=== PATIENT | male | born 1960 | race Caucasian/White ===

== ENCOUNTER 2018-10-30 10:52 | Emergency (ER) | payer BC ==
[2018-10-30 11:06] VITALS: BP 178/86
--- NOTE | 2018-10-30 11:22 | UC ---
Skin Complaint HPI - HPI Summary HPI Summary: 58 -year-old male, insulin-dependent diabetic with an abscess to his right neck as well as 2 areas on his left upper leg which he stated they all started as pimples last and have progressively worsened. He believes he may have had a fever over the past day or 2. - History of Current Complaint Chief Complaint: UCGeneralIllness Time Seen by Provider: 10/30/18 11:21 Stated Complaint: PERSONAL Hx Obtained From: Patient Onset/Duration: Gradual Onset Skin Exposure Onset/Duration: Days Ago Timing: Constant Onset Severity: Mild Current Severity: Moderate Pain Intensity: 0 Location: Other - Right neck more posterior. Character: Swelling, Redness, Raised, Painful Aggravating Factor(s): Touch Alleviating Factor(s): Nothing Associated Signs & Symptoms: Positive: Fever, Chills, Drainage - Patient has had a small amount of yellow drainage from the neck abscess. Related History: Diabetes, Other: - Patient states the area started as small pimples. - Allergy/Home Medications Allergies/Adverse Reactions: Allergies Allergy/AdvReac Type Severity Reaction Status Date / Time Sulfa (Sulfonamide Allergy Intermediate Unknown Verified 10/30/18 11:06 Antibiotics) Reaction Details Home Medications: Home Medications Insulin Glargine,Hum.rec.anlog [Lantus] 100 unit SQ DAILY 10/30/18 [History Confirmed 10/30/18] Losartan Potassium [Cozaar] 50 mg PO DAILY WITH MEAL 10/30/18 [History Confirmed 10/30/18] PMH/Surg Hx/FS Hx/Imm Hx Previously Healthy: Yes Endocrine History: Diabetes Cardiovascular History: Hypertension - Surgical History Surgical History: Yes Surgery Procedure, Year, and Place: vasectomy. tonsils - Family History Known Family History: Positive: Non-Contributory - Social History Alcohol Use: Occasionally Substance Use Type: None Smoking Status (MU): Former Smoker Review of Systems All Other Systems Reviewed And Are Negative: Yes Constitutional: Positive: Fever, Chills Skin: Positive: Other - Abscess right posterior neck, scabbed areas on his left lateral leg that are hot red tender but no drainage. Is Patient Immunocompromised?: No Physical Exam Triage Information Reviewed: Yes Appearance: Well-Appearing, No Pain Distress, Well-Nourished Vital Signs: Initial Vital Signs Temp 99.6 F 10/30/18 11:00 Pulse 98 10/30/18 11:00 Resp 20 10/30/18 11:00 BP 178/86 10/30/18 11:00 Pulse Ox 100 10/30/18 11:00 Vital Signs Reviewed: Yes Eyes: Positive: Conjunctiva Clear ENT: Positive: Hearing grossly normal, Pharynx normal, TMs normal, Uvula midline Neck: Positive: Supple, Other: - Patient has an area approximately 8-10 cm in diameter on his right neck very hard on palpation, erythematous, there is a small amount of yellowish drainage. Respiratory: Positive: Lungs clear, Normal breath sounds, No respiratory distress, No accessory muscle use Cardiovascular: Positive: RRR, No Murmur, Pulses Normal, Brisk Capillary Refill Musculoskeletal: Positive: Strength Intact, ROM Intact Neurological: Positive: Alert, Muscle Tone Normal Psychological Exam: Normal Skin: Positive: Other - Patient also has 2 areas on his lateral left upper and lower leg that are surrounded by erythema and scabs with mild tenderness on palpation no red streaking not swollen no active drainage. Course/Dx - Course Course Of Treatment: I am referring this patient to the emergency room because he has a low-grade fever, he has a definite neck abscess and because of his diabetes he may need to be admitted to the hospital for IV antibiotics. Patient is agreeable to plan of action and refuses an ambulance to the emergency room and prefers to drive. - Diagnoses Provider Diagnosis: Cellulitis and abscess of neck, Abscess of left leg Discharge - Sign-Out/Discharge Documenting (check all that apply): Patient Departure All imaging exams completed and their final reports reviewed: No Studies - Discharge Plan Condition: Fair Disposition: HOME-RECOMMEND TO ED Patient Education Materials: Abscess (ED) Referrals: Kvng Mays MD [Primary Care Provider] - Additional Instructions: After the evaluation by the nurse practitioner, it is recommended that you go to the emergency room for further evaluation of the cellulitis and abscess where you should receive additional testing that can be completed in the emergency department. It is recommended that you go directly to the emergency department. This evaluation may include blood work or imaging. This testing will be directed and decided by the provider that evaluates you within the emergency department. If pain becomes worse, you feel lightheaded or any worsening symptms or have any other concerns while you are driving to the emergency room, please slab puller and call 911. - Billing Disposition and Condition Condition: FAIR Disposition: Home-Recommend to ED - Attestation Statements Provider Attestation: I was available for consult. This patient was seen by the INDRA. The patient was not presented to, seen by, or examined by me. -Ildefonso
== END 2018-10-30 11:28 | disposition home health service (06) ==
LOC: UCEAST 10:52
DX: L03.221 Cellulitis of neck (principal); L02.11 Cutaneous abscess of neck; L02.416 Cutaneous abscess of left lower limb; R50.9 Fever, unspecified; E11.9 Type 2 diabetes mellitus without complications; Z79.4 Long term (current) use of insulin; I10 Essential (primary) hypertension; Z88.2 Allergy status to sulfonamides; Z87.891 Personal history of nicotine dependence
CPT/HCPCS: 99212; G0463

== ENCOUNTER 2018-10-30 11:55 | Inpatient (IN) | payer BC ==
[2018-10-30] MEDS ORDERED: NS 0.9% 1000 ML** 1,000 ML IV.FLUID IV ONE (13:15)
[2018-10-30] MEDS ORDERED: Vancomycin(*) 1,000 MG VIAL IVPB SCH (13:15)
--- NOTE | 2018-10-30 13:15 | ED ---
Skin Complaint - HPI Summary HPI Summary: A 58 y/o M referred from [facility] presents to ED c/o R lateral neck swelling onset four days ago and worsening. Associated sx: neck pain and erythema. He believes it is an abscess. He has had abbesses previously, but not this severely. He says it began as what looked like a pimple. He also has a similar but smaller area of swelling, pain and erythema to his posterior LLE. Patient is afebrile in ED. - History of Current Complaint Chief Complaint: EDRashSkinAbscess Time Seen by Provider: 10/30/18 13:10 Stated Complaint: FEVER,CHILLS, RAPID HEART RATE PER CC Hx Obtained From: Patient Onset/Duration: Started Days Ago, Still Present Timing: Constant Onset Severity: Mild Current Severity: Moderate Pain Intensity: 5 Pain Scale Used: 0-10 Numeric Skin Location: Neck - R side, Leg - LLE Character: Swelling, Redness, Painful - Allergy/Home Medications Allergies/Adverse Reactions: Allergies Allergy/AdvReac Type Severity Reaction Status Date / Time Sulfa (Sulfonamide Allergy Intermediate Unknown Verified 10/30/18 11:06 Antibiotics) Reaction Details Home Medications: Home Medications Atorvastatin* [Lipitor*] 40 mg PO DAILY 10/30/18 [History Confirmed 10/30/18] Insulin GLARGINE(*) [Lantus(*)] 26 units SUBCUT BID 10/30/18 [History Confirmed 10/30/18] Insulin LISPRO* [HumaLOG*] 16 units SUBCUT TID WITH MEALS 10/30/18 [History Confirmed 10/30/18] Losartan TAB* [Cozaar TAB*] 100 mg PO DAILY 10/30/18 [History Confirmed 10/30/18 ] amLODIPine TAB* [Norvasc 5 mg TAB*] 5 mg PO DAILY 10/30/18 [History Confirmed ] PMH/Surg Hx/FS Hx/Imm Hx Previously Healthy: No Endocrine/Hematology History: Reports: Hx Diabetes - Type I Denies: Hx Thyroid Disease Cardiovascular History: Reports: Hx Hypertension Respiratory History: Denies: Hx Asthma, Hx Chronic Obstructive Pulmonary Disease (COPD) GI History: Denies: Hx Ulcer - Surgical History Surgery Procedure, Year, and Place: vasectomy. tonsils Infectious Disease History: No Infectious Disease History: Denies: Hx Hepatitis, Hx Human Immunodeficiency Virus (HIV), Traveled Outside the [place] in Last 30 Days - Family History Known Family History: Positive: Cardiac Disease - mom, Diabetes - Aunt, Respiratory Disease - mom-COPD - Social History Occupation: Employed Full-time Lives: Alone Alcohol Use: Occasionally Hx Substance Use: No Substance Use Type: Reports: None Hx Tobacco Use: Yes Smoking Status (MU): Former Smoker Review of Systems Negative: Fever Skin: Other - pos: areas of swelling, erythema and pain to R-side of neck and posterior LLE All Other Systems Reviewed And Are Negative: Yes Physical Exam - Summary Physical Exam Summary: Appearance: Well-appearing, Well-nourished, lying in bed comfortably Skin: Warm, dry, no obvious rash. There is a large cellulitis on the posterior R lateral neck, which appears to have purulent drainage from center. There is a smaller but still significant cellulitis of LLE posteriorly and laterally to knee. Eyes: sclera anicteric, no conjunctival pallor ENT: mucous membranes moist, pharynx appears normal Neck: Supple, nontender Respiratory: Clear to auscultation, no signs of respiratory distress Cardiovascular: Normal S1, S2. No murmurs. Normal distal pulses in tibial and radial bilaterally. Abdomen: Soft, nontender, normal active bowel sounds present Musculoskeletal: Normal, Strength/ROM Intact Neurological: A&Ox3, awake and alert, mentation is normal, speech is fluent and appropriate Psychiatric: affect is normal, does not appear anxious or depressed Triage Information Reviewed: Yes Vital Signs On Initial Exam: Initial Vitals Temp Pulse Resp BP Pulse Ox 99.5 F 95 19 194/117 98 10/30/18 12:12 10/30/18 12:12 10/30/18 12:12 10/30/18 12:12 10/30/18 12:12 Vital Signs Reviewed: Yes Diagnostics - Vital Signs Vital Signs Temp Pulse Resp BP Pulse Ox 10/30/18 12:12 99.5 F 95 19 194/117 98 - Laboratory Result Diagrams: 10/31/18 06:47 10/31/18 06:47 Lab Statement: Any lab studies that have been ordered have been reviewed, and results considered in the medical decision making process. - Additional Comments Diagnostic Additional Comments: LLE SOFT TISSUE ULTRASOUND: IMPRESSION: In the lateral distal thigh there is a hypoechoic area just under the skin measuring 1.5 x 0.6 x 1.9 cm and may represent a small abscess. ED provider has reviewed this report. HEAD/NECK SOFT TISSUE ULTRASOUND: IMPRESSION: Hypoechoic area measuring approximately 5.0 x 1.3 cm which may represent some phlegmonous change. ED provider has reviewed this report. Course/Dx - Course Course Of Treatment: Pt is a 58 y/o M presenting with neck swelling, pain and redness onset four days ago and worsening. He thinks it started as a pimple, and has the same swelling, pain and redness in an area on his posterior LLE. PE finds a large cellulitis on the posterior R lateral neck, which appears to have purulent drainage from center. There is a smaller but still significant cellulitis of LLE posteriorly and laterally to knee. LLE U/S shows "In the lateral distal thigh there is a hypoechoic area just under the skin measuring 1.5 x 0.6 x 1.9 cm and may represent a small abscess." HEAD/NECK U/S shows "Hypoechoic area measuring approximately 5.0 x 1.3 cm which may represent some phlegmonous change.". Lab work shows WBC: 22.8, Hgb: 13.3, Hct: 37, abs neutrophils: 19.0, abs monos: 2.2, INR: 1.2, sodium: 129, chloride: 93, glucose : 338, total bili: 1.10, AST: 8, CRP: 203.71. Consult with Dr. Kruse, surgery , who feels the cellulitis does not require surgical intervention at this time. Consulted with Dr. Rojas, hospitalist, who will admit patient. - Diagnoses Provider Diagnoses: Cellulitis, neck - Physician Notifications Discussed Care Of Patient With: Rodo Grewal - surgery Time Discussed With Above Provider: 14:15 Instructed by Provider To: Other - Discussed patient. Consult when official US report is back. Consult at 1510: Discussed US results, no surgery at this time. Discharge - Sign-Out/Discharge Documenting (check all that apply): Patient Departure - ADMIT Patient Received Moderate/Deep Sedation with Procedure: No - Discharge Plan Condition: Fair Disposition: ADMITTED TO [facility] - Billing Disposition and Condition Condition: FAIR Disposition: Admitted to [facility] - Attestation Statements Document Initiated by Scribe: Yes Documenting Scribe: Caseysrinivas Sellers Provider For Whom Scribe is Documenting (Include Credential): Dr. Dexter Hernández MD Scribe Attestation: I, Pam Sellers, scribed for Dr. Dexter Hernández MD on 10/31/18 at 1122. Scribe Documentation Reviewed: Yes Provider Attestation: The documentation as recorded by the nusrat, Pam Sellers accurately reflects the service I personally performed and the decisions made by me, Dr. Dexter Hernández MD Status of Scribe Document: Viewed Consult Consult: 1420: Consult with Dr. Rojas, hospitalist Will accept patient.
[2018-10-30 13:50] LABS: Hematocrit 37 % (42-52); Hemoglobin 13.3 g/dL (14.0-18.0); Mean Corpuscular HGB Conc 36 g/dL (31-36); Mean Corpuscular Hemoglobin 30 pg (27-31); Mean Corpuscular Volume 84 fL (80-94); Mean Platelet Volume 7.6 fL (7.4-10.4); Platelet Count 349 10^3/uL (150-450); Red Blood Count 4.42 10^6 /uL (4.18-5.48); Red Cell Distribution Width 13 % (10.5-15); White Blood Count 22.8 10^3/uL (3.5-10.8)
[2018-10-30 13:59] LABS: Activated Partial Thrombo Time 34.9 seconds (26.0-36.3); INR 1.2 (0.82-1.09)
[2018-10-30] MEDS ORDERED: Vancomycin 1500 MG IV - x ONCE IVPB ONE ×2 (14:00)
[2018-10-30 14:05] LABS: ABS Basophils 0.2 10^3/ul (0-0.2); ABS Eosinophils 0.4 10^3/ul (0-0.6); ABS Monocytes 2.2 10^3/ul (0-0.8); Eosinophil % 1.6 %; Lymphocyte % 4.3 %; Nucleated Red Blood Cells % 0.1
[2018-10-30 14:08] LABS: Albumin 3.5 g/dL (3.2-5.2); BUN/Creatinine Ratio 18.6 (8-20); C Reactive Protein 203.71 mg/L (<8.01); Calcium 8.9 mg/dL (8.6-10.3); EGFR African American 80.9 (>60); EGFR Non-African American 66.9 (>60); Globulin 3.6 g/dL (2-4); Potassium 3.6 mmol/L (3.5-5.0); Total Bilirubin 1.1 mg/dL (0.2-1.0); Total Protein 7.1 g/dL (6.4-8.9); Troponin I 0.01 ng/mL (<0.04)
[2018-10-30] MEDS ORDERED: Dextrose 50% Syringe 50 ML* 25 GM/50 ML SYRINGE IV PUSH PRN (15:33)
[2018-10-30] MEDS ORDERED: Cefepime(*) 1 GM in NS 0.9% 50 ML* 50 ML IVPB ONE (15:35)
[2018-10-30] MEDS ORDERED: Acetaminophen TAB* 325 MG PO PRN (15:36)
[2018-10-30] MEDS ORDERED: NS 0.9% 50 ML* 50 ML ONE (15:48)
[2018-10-30] MEDS ORDERED: Vancomycin per Pharmacy* NOTE FOLLOW UP SCH (16:00)
[2018-10-30] MEDS ORDERED: NS 0.9% 1000 ML** 1,000 ML IV SCH (16:00)
[2018-10-30] MEDS: Insulin LISPRO* 1 UNITS UNIT SUBCUT SCH ×2 (18:08)
--- NOTE | 2018-10-30 19:49 | HP ---
CC: Dr. Kvng Mays; Dr. Grewal * HISTORY AND PHYSICAL: DATE OF ADMISSION: 10/30/18 TIME OF EVALUATION: 3 p.m. PRIMARY CARE PROVIDER: Kvng Mays MD. CONSULTING GENERAL SURGEON: Dr. Grewal. CHIEF COMPLAINT: "My neck is swollen." HISTORY OF PRESENT ILLNESS: Mr. Bui is a 58-year-old male with a past medical history of type 1 diabetes, depression, hypertension, obesity with a BMI of 34, hyperlipidemia who presented to the emergency room with complaints of pain and edema to the right side of his neck. The patient states that 5 days ago, he felt like he had "a pimple" on the right posterior area of his neck. This area has increased, become swollen and he also states that the area felt very hot. He took some aspirin at home with no significant improvement. He developed some malaise but denies fever. The edema continued and today he noted some drainage, reason why he went to [facility] for evaluation and was referred to the emergency room for further management. He also complaints of some "lumps" on his left thigh. He states that he has a chronic rash with multiple scabbed over lesions on upper and lower extremities and when I asked him when did this rash started, he states "this is nothing new." He denies fever, chills, nausea, vomiting, diarrhea, or urinary complaints. He states that his diabetes is chronically uncontrolled. He was diagnosed when he was 10 years old and states that his glucose is usually "all over the place." PAST MEDICAL HISTORY: 1. 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 2. Chronic dermatitis. 3. Depression. 4. Hypertension. 5. Obesity with a BMI of 34. 6. Hyperlipidemia. MEDICATION LIST: 1. Amlodipine 5 mg p.o. daily. 2. Atorvastatin 40 mg p.o. daily. 3. Lantus 26 units subcutaneously b.i.d. 4. Lispro 16 units subcutaneously t.i.d. with meals. 5. Losartan 100 mg p.o. daily. ALLERGIES: With SULFA, the patient had a rash. FAMILY HISTORY: Mother had a history of type 2 diabetes and father at age 59, but he does not know the cause. SOCIAL HISTORY: The patient is a former smoker. No history of alcohol or drug abuse. He does not indicate anyone to be a surrogate decision maker at this time. He works for the [employer]. REVIEW OF SYSTEMS: A 14-point review of systems was performed and all the pertinent negatives and positive findings are in the HPI. PHYSICAL EXAMINATION GENERAL: The patient is a middle-aged obese gentleman, sitting up on the stretcher, in no acute distress. VITAL SIGNS: Temperature 98.1, heart rate 96, respiratory rate 16, oxygen saturation is 100% on room air, blood pressure is 161/74. HEENT: Pupils are equal. Moist mucous membranes. The patient has an area of induration and erythema on the right posterolateral aspect of his neck with a small area of purulent drainage in the center. The area is tender to palpation. There is no fluctuation. CHEST: Breath sounds present bilaterally with no added sounds. CVS: Normal S1 and S2. Regular rate and rhythm. ABDOMEN: Obese. Bowel sounds are present. EXTREMITIES: No edema. The patient has 2 small indurated areas in the posterior aspect of the left thigh with mild surrounding erythema and a dark center. NEURO: He is alert and oriented x3. Able to move all 4 extremities. SKIN: The patient has multiple lesions with crusts in the upper and lower extremities and scratch draper. LABORATORY AND IMAGING DATA: The patient had a CBC that shows a WBC of 22.8, hemoglobin of 13.3, hematocrit of 37, platelets of 349 with 83% neutrophils. INR is 1.2. Chemistry showed a sodium 129, potassium 3.6, chloride of 93, bicarb of 26, BUN of 21, creatinine of 1.1, glucose of 338. Lactic acid is 1.3. Calcium of 8.9. LFTs showed a total bilirubin of 1.1, AST of 8, ALT of 6 , alk phos of 108, and CRP was 203. Soft tissue ultrasound of his neck shows a hypoechoic area measuring 5 x 1.3 cm , which may represent some phlegmonous change, but there was no abscess reported. The left thigh ultrasound showed a hypoechoic area just under the skin measuring 1.5 x 0.6 x 1.9 cm that may represent a small abscess. ASSESSMENT AND PLAN: Mr. Bui is a 58-year-old male with chronically uncontrolled type 1 diabetes, hypertension, hyperlipidemia, depression, obesity who presented to the emergency room with complaints of right-sided neck pain, edema and erythema, found to have sepsis secondary to neck cellulitis/carbuncle. 1. Sepsis. The patient meets SIRS criteria with leukocytosis and tachycardia and source is his cellulitis. Lactic acid was 1.3 and the patient has no hypotension and we will continue gentle IV hydration. 2. Cellulitis/carbuncle. I suspect the patient's infection probably started as folliculitis that has progressed to cellulitis and probable carbuncle formation. This is likely a staphylococcal infection as he started to have purulence in the area. He is allergic to BACTRIM, so he would be continued on oral vancomycin and I will add cefepime for now. Wound cultures were sent and we can adjust his antibiotic therapy depending on the cultures. The ED provider discussed the case with general surgery and it was felt there is no indication for I and D at this time. We will continue antibiotic therapy and depending on how the area progresses, then we will reconsult surgery. I suspect the patient probably has chronic folliculitis that he frequently picks on. We will check an MRSA nasal swab as depending on his progression, he may benefit topical therapy with chlorhexidine. 3. Type 1 diabetes. The patient was diagnosed when he was 10 and states that his sugar has never been controlled. Last A1c as per Dr. Mays's note was 8.8 and this was in February 2018. We will continue his Lantus, lispro regimen, but we will adjust the doses since I suspect his p.o. intake in the hospital will be lower. We will also add carb coverage while in the hospital. We will repeat his hemoglobin A1c and we will monitor his fingersticks a.c. and h.s. 4. Hypertension. The patient's blood pressure was elevated on ED arrival, but it is trending down at this time. We will continue his amlodipine and losartan and we will continue to monitor it. 5. Hyperlipidemia. We will continue atorvastatin. 6. DVT prophylaxis. The patient has a score of 3 on the DVT Prophylaxis Risk Assessment Guide and he will be started on subcutaneous heparin. 7. Code status is full. TIME SPENT: Approximately 60 minutes was spent with patient interview, medical records review, physical examination to complete the admission; more than half of this time was spent [id number] with the patient and coordination of care. [id number]/[facility] #: [id number] [facility] DIVISIONKeshawn
[2018-10-30] MEDS: Vancomycin(*) 1,000 MG in NS 0.9% 250 ML* 250 ML IVPB SCH (21:19)
[2018-10-30] MEDS ORDERED: Insulin LISPRO* 1 UNITS UNIT SUBCUT ONE (21:30)
[2018-10-30 22:04] LABS: Urine Appearance Cloudy; Urine Bacteria Absent (Absent); Urine Bilirubin Negative (Negative); Urine Blood 2+ (Negative); Urine Color Yellow; Urine Glucose 3+(>=500 mg/dL) (Negative); Urine Ketones 1+ (Negative); Urine Nitrite Negative (Negative); Urine Protein 2+(100 mg/dL) (Negative); Urine Red Blood Cell 1+(3-5/hpf) (Absent); Urine Urobilinogen Negative (Negative); Urine White Blood Cell Trace(0-5/hpf) (Absent)
[2018-10-30] MEDS: Insulin GLARGINE(*) 1 UNITS UNIT SUBCUT SCH (22:11)
[2018-10-30] MEDS: Heparin VIAL(*) 5000 UNITS/ML VIAL (FIVE THOUSAND) SUBCUT SCH (22:12)
[2018-10-31] MEDS ORDERED: Cefepime ADVAN(*) 1 GM in NS 0.9% 50 ML* 50 ML IVPB SCH (05:30)
[2018-10-31] MEDS: Vancomycin(*) 1,000 MG in NS 0.9% 250 ML* 250 ML IVPB SCH ×2 (05:35→13:52)
[2018-10-31] MEDS: Heparin VIAL(*) 5000 UNITS/ML VIAL (FIVE THOUSAND) SUBCUT SCH ×3 (05:36→21:35)
[2018-10-31 07:04] LABS: Hematocrit 34 % (42-52); Hemoglobin 11.8 g/dL (14.0-18.0); Mean Corpuscular HGB Conc 35 g/dL (31-36); Mean Corpuscular Hemoglobin 29 pg (27-31); Mean Corpuscular Volume 85 fL (80-94); Mean Platelet Volume 7.4 fL (7.4-10.4); Platelet Count 303 10^3/uL (150-450); Red Blood Count 4.01 10^6 /uL (4.18-5.48); Red Cell Distribution Width 13 % (10.5-15); White Blood Count 20.1 10^3/uL (3.5-10.8)
[2018-10-31 07:07] LABS: ABS Basophils 0.1 10^3/ul (0-0.2); ABS Eosinophils 0.4 10^3/ul (0-0.6); ABS Lymphocytes 0.8 10^3/ul (1.0-4.8); ABS Monocytes 1.8 10^3/ul (0-0.8); Lymphocyte % 3.9 %; Nucleated Red Blood Cells % 0.1
[2018-10-31 07:21] LABS: Calcium 7.8 mg/dL (8.6-10.3); EGFR African American 87.1 (>60); Potassium 3.8 mmol/L (3.5-5.0)
[2018-10-31] MEDS: Cefepime 1 GM in Dextrose(*) 1 GM/50 ML BAG IV SCH ×2 (09:26→17:11)
[2018-10-31] MEDS: Insulin GLARGINE(*) 1 UNITS UNIT SUBCUT SCH ×2 (09:30→22:43)
[2018-10-31] MEDS: amLODIPine TAB* 5 MG PO SCH (09:32)
[2018-10-31] MEDS: Insulin LISPRO* 1 UNITS UNIT SUBCUT SCH ×7 (09:32→22:46)
[2018-10-31] MEDS: Losartan TAB* 25 MG PO SCH (09:33)
[2018-10-31] MEDS: Atorvastatin* 40 MG TAB PO SCH (09:33)
--- NOTE | 2018-10-31 09:45 | PN ---
Subjective - Subjective Reason for Note: Progress Note History: Madeline Underwood is a primary care and endocrine patient at my medical office. He has longstanding T1D that is poorly controlled due to a fatalistic attitude and non-compliance - A1c ranges 7.7 - 8.8%. He is a skin manager heart. He has had numerous skin lesions. He developed an abscess left thigh and then another sore spot on the back of his neck. This worsened rapidly and he presented to Urgent care and transferred to the ED with a carbuncle on the back of his neck, out control diabetes and elevated WBC. He has felt generally unwell for several days. Today he continues to have pain over the neck carbuncle. He has uncontrolled T1D. Active Problems: Active Problems Boil, thigh (Acute) L02.429 Carbuncle and furuncle of neck (Acute) L02.12, L02.13 Type 1 diabetes mellitus with hyperglycemia (Acute) E10.65 Essential hypertension (Chronic) I10 Hyperlipidemia (Chronic) E78.5 Obesity (BMI 30.0-34.9) (Chronic) E66.9 Skin picking habit (Chronic) F42.4 Type 1 diabetes mellitus with microalbuminuria (Chronic) E10.29, R80.9 Type 1 diabetes mellitus with retinopathy (Chronic) E10.319 Current Medications: Current Medications Acetaminophen (Tylenol Tab*) 650 mg PO Q6H PRN PRN Reason: pain/fever Amlodipine Besylate (Norvasc Tab*) 5 mg PO DAILY [facility] Last Admin: 10/31/18 09:32 Dose: 5 mg Atorvastatin Calcium (Lipitor*) 40 mg PO DAILY [facility] Last Admin: 10/31/18 09:33 Dose: 40 mg Dextrose (D50w Syringe 50 Ml*) 12.5 gm IV PUSH .FOR FS < 60 - SS PRN PRN Reason: FS < 60 Heparin Sodium (Porcine) (Heparin Vial(*)) 5,000 units SUBCUT Q8HR [facility] Last Admin: 10/31/18 05:36 Dose: 5,000 units Vancomycin HCl 1,000 mg/ (Sodium Chloride) 250 mls @ 166.667 mls/hr IVPB Q8H [facility]; Protocol Last Admin: 10/31/18 05:35 Dose: 166.667 mls/hr Sodium Chloride (Ns 0.9% 1000 Ml) 1,000 mls @ 75 mls/hr IV PER RATE [facility] Last Admin: 10/30/18 17:11 Dose: 75 mls/hr Cefepime HCl (Maxipime 1 Gm In Dextrose Duplex (*)) 1 gm in 50 mls @ 100 mls/ hr IV Q12H [facility] Last Admin: 10/31/18 09:26 Dose: 100 mls/hr Insulin Glargine (Lantus(*)) 26 units SUBCUT BID [facility] Last Admin: 10/31/18 09:30 Dose: 26 units Insulin Human Lispro (Humalog*) 10 units SUBCUT TID WITH MEALS [facility] Last Admin: 10/31/18 09:32 Dose: 10 units Insulin Human Lispro (Humalog*) 0 units SUBCUT AC [facility]; Protocol Last Admin: 10/30/18 18:08 Dose: 2 units Losartan Potassium (Cozaar Tab*) 100 mg PO DAILY [facility] Last Admin: 10/31/18 09:33 Dose: 100 mg Pharmacy Consult (Vancomycin Per Pharmacy*) 1 note FOLLOW UP .VANC PER PHARMACY [facility] Pharmacy Profile Note (Vancomycin Trough Check) 1 note FOLLOW UP ONCE ONE Stop: 10/31/18 12:31 - Review of Systems Constitutional Symptoms: Yes: Fatigue, Fever Dermatology: Skin Lesions: Yes Pulmonary: Negative: Cough, Sputum, Hemoptysis, Wheezing, Respiratory Distress Cardiology: Negative: Chest Pain, Shortness of Breath, Palpitations, Swelling of Ankles Gastroenterology: Negative: Abdominal Pain, Nausea, Vomiting, Anorexia Genital - Urinary: Negative: Dysuria, Hematuria Neurology: Negative: Headache Psychiatry: Positive: Depression Home Medications: Home Medications Medication Instructions Recorded Confirmed Type Atorvastatin* [Lipitor*] 40 mg PO DAILY 10/30/18 10/30/18 History Insulin GLARGINE(*) [Lantus(*)] 26 units SUBCUT BID 10/30/18 10/30/18 History Insulin LISPRO* [HumaLOG*] 16 units SUBCUT TID WITH MEALS 10/30/18 10/30/18 History Losartan TAB* [Cozaar TAB*] 100 mg PO DAILY 10/30/18 10/30/18 History amLODIPine TAB* [Norvasc 5 mg TAB*] 5 mg PO DAILY 10/30/18 10/30/18 History Allergies: Allergies Allergy/AdvReac Type Severity Reaction Status Date / Time Sulfa (Sulfonamide Allergy Intermediate Unknown Verified 10/30/18 11:06 Antibiotics) Reaction Details Objective - Vital Signs Vital Signs: Vital Signs 10/30/18 10/30/18 10/30/18 12:12 13:41 14:00 Temperature 99.5 F Pulse Rate 95 91 91 Respiratory 19 Rate Blood Pressure 194/117 (mmHg) O2 Sat by Pulse 98 96 94 Oximetry 10/30/18 10/30/18 10/30/18 15:00 15:16 15:33 Temperature Pulse Rate 96 92 92 Respiratory Rate Blood Pressure 176/81 (mmHg) O2 Sat by Pulse 98 95 96 Oximetry 10/30/18 10/30/18 10/30/18 15:46 16:00 16:04 Temperature 98.0 F Pulse Rate 96 96 97 Respiratory 30 Rate Blood Pressure 161/74 154/84 (mmHg) O2 Sat by Pulse 98 97 98 Oximetry 10/30/18 10/30/18 10/30/18 16:16 16:52 19:59 Temperature 98.1 F 98.0 F 99.2 F Pulse Rate 89 97 99 Respiratory 16 18 30 Rate Blood Pressure 159/88 154/84 153/66 (mmHg) O2 Sat by Pulse 97 98 97 Oximetry 10/31/18 10/31/18 04:14 05:40 Temperature 99.8 F Pulse Rate 92 Respiratory 18 18 Rate Blood Pressure 148/81 (mmHg) O2 Sat by Pulse 97 Oximetry - Intake and Output Intake and Output: Intake & Output 10/28/18 10/29/18 10/30/18 10/31/18 11:59 11:59 11:59 11:59 Intake Total 4970 Output Total 400 Balance 4570 Weight 211 lb 6.4 oz Intake: IV Fluids 4140 Cefepime 50 NS 780 IVPB 270 ABX - VANCOMYCIN 270 Oral 560 Output: Urine 400 Other: # Bowel Movements 0 # Voids 0 ADLs: Meal Record Start: 10/30/18 16: 04 Freq: DAILY@0900,1400,1800 Status: Active Protocol: Created 10/30/18 16:04 System (Rec: 10/30/18 16:04 System [id number]) Document 10/30/18 17:51 [id number] (Rec: 10/30/18 17:51 [id number] [id number]) Intake and Output Start: 10/30/18 12: 16 Freq: Status: Active Protocol: Created 10/30/18 12:16 System (Rec: 10/30/18 12:16 System [id number]) Intake and Output Start: 10/30/18 16: 04 Freq: DAILY@0600,1400,2200 Status: Active Protocol: Created 10/30/18 16:04 System (Rec: 10/30/18 16:04 System [id number]) Document 10/30/18 22:00 [id number] (Rec: 10/30/18 23:42 [id number] MED-C14) Document 10/31/18 04:18 [id number] (Rec: 10/31/18 04:18 [id number] MED-C16) Document 10/31/18 05:38 [id number] (Rec: 10/31/18 05:38 [id number] MED-C16) - Physical Exam General Physical Exam Comment: He has a dressing over swelling right posterior neck. He has a crusted small boil on left thigh - looks recovering and not acute. He has multiple skin scars from picking. Sitting in a chair, looks well perfused/hydrated and is hemodynamically stable General: No Cyanosis, No Anemia, No Jaundice, No Clubbing Skin: Abnormal: Lesions Endocrine: Yes Central Obesity, No Acromegaly, No Vitiligo, No Flushing, No Acanthosis nigricans, No Violaceious striae, No [place] Syndrome, No Buccal pigmenatation Lungs and Chest: Yes: Chest Expansion Full, Chest Expansion Symetrica, Percussion Note Resonant, Vessicular Breath Sounds. No: Crackles, Wheezes, Respiratory Distress, Use of Accessory Muscles Heart Rate and Rhythm: Regular [place] Beat: Non Displaced Additional Cardiovascular: Yes: Normal Heart Sounds. No: Heart Murmur, Pedal Edema Abdominal Exam: Yes: Soft, Bowel Sounds Present. No: Distention, Abdominal Tenderness - Extremities Cranial Nerves II-XII Intact: Yes Limbs: Normal Power, Normal Tone - Neuro Orientation: A/O x3 Psychiatric: Normal, Depressed Speech: Normal Results - Results Lab Results: Laboratory Results - last 24 hr 10/30/18 10/30/18 10/30/18 11:00 13:37 13:37 WBC 22.8 H RBC 4.42 Hgb 13.3 L Hct 37 L MCV 84 MCH 30 MCHC 36 RDW 13 Plt Count 349 MPV 7.6 Neut % (Auto) 83.4 Lymph % (Auto) 4.3 [place] % (Auto) 9.6 Eos % (Auto) 1.6 Baso % (Auto) 1.1 Absolute Neuts (auto) 19.0 H Absolute Lymphs (auto) 1.0 Absolute Monos (auto) 2.2 H Absolute Eos (auto) 0.4 Absolute Basos (auto) 0.2 Absolute Nucleated RBC 0.0 Nucleated RBC % 0.1 INR (Anticoag Therapy) 1.20 H APTT 34.9 Sodium Potassium Chloride Carbon Dioxide Anion Gap BUN Creatinine Est GFR ( Amer) Est GFR (Non-Af Amer) BUN/Creatinine Ratio Glucose POC Glucose (mg/dL) Lactic Acid Calcium Total Bilirubin AST ALT Alkaline Phosphatase Troponin I C-Reactive Protein Total Protein Albumin Globulin Albumin/Globulin Ratio Urine Color Yellow Urine Appearance Cloudy Urine pH 5.0 Ur Specific [place] 1.030 Urine Protein 2+(100 mg/dl) A Urine Ketones 1+ A Urine Blood 2+ A Urine Nitrate Negative Urine Bilirubin Negative Urine Urobilinogen Negative Ur Leukocyte Esterase Negative Urine WBC (Auto) Trace(0-5/hpf) Urine RBC (Auto) 1+(3-5/hpf) A Urine Bacteria Absent Urine Glucose 3+(>=500 mg/dl) A 10/30/18 10/30/18 10/30/18 13:37 13:37 16:47 WBC RBC Hgb Hct MCV MCH MCHC RDW Plt Count MPV Neut % (Auto) Lymph % (Auto) [place] % (Auto) Eos % (Auto) Baso % (Auto) Absolute Neuts (auto) Absolute Lymphs (auto) Absolute Monos (auto) Absolute Eos (auto) Absolute Basos (auto) Absolute Nucleated RBC Nucleated RBC % INR (Anticoag Therapy) APTT Sodium 129 L Potassium 3.6 Chloride 93 L Carbon Dioxide 26 Anion Gap 10 BUN 21 Creatinine 1.13 Est GFR ( Amer) 80.9 Est GFR (Non-Af Amer) 66.9 BUN/Creatinine Ratio 18.6 Glucose 338 H POC Glucose (mg/dL) 220 H Lactic Acid 1.3 Calcium 8.9 Total Bilirubin 1.10 H AST 8 L ALT 6 L Alkaline Phosphatase 108 H Troponin I 0.01 C-Reactive Protein 203.71 H Total Protein 7.1 Albumin 3.5 Globulin 3.6 Albumin/Globulin Ratio 1.0 Urine Color Urine Appearance Urine pH Ur Specific [place] Urine Protein Urine Ketones Urine Blood Urine Nitrate Urine Bilirubin Urine Urobilinogen Ur Leukocyte Esterase Urine WBC (Auto) Urine RBC (Auto) Urine Bacteria Urine Glucose 10/30/18 10/30/18 10/31/18 17:23 21:20 06:47 WBC 20.1 H RBC 4.01 L Hgb 11.8 L Hct 34 L MCV 85 MCH 29 MCHC 35 RDW 13 Plt Count 303 MPV 7.4 Neut % (Auto) 84.5 Lymph % (Auto) 3.9 [place] % (Auto) 8.9 Eos % (Auto) 2.0 Baso % (Auto) 0.7 Absolute Neuts (auto) 17.0 H Absolute Lymphs (auto) 0.8 L Absolute Monos (auto) 1.8 H Absolute Eos (auto) 0.4 Absolute Basos (auto) 0.1 Absolute Nucleated RBC 0.0 Nucleated RBC % 0.1 INR (Anticoag Therapy) APTT Sodium Potassium Chloride Carbon Dioxide Anion Gap BUN Creatinine Est GFR ( Amer) Est GFR (Non-Af Amer) BUN/Creatinine Ratio Glucose POC Glucose (mg/dL) 324 H Lactic Acid 1.8 Calcium Total Bilirubin AST ALT Alkaline Phosphatase Troponin I C-Reactive Protein Total Protein Albumin Globulin Albumin/Globulin Ratio Urine Color Urine Appearance Urine pH Ur Specific [place] Urine Protein Urine Ketones Urine Blood Urine Nitrate Urine Bilirubin Urine Urobilinogen Ur Leukocyte Esterase Urine WBC (Auto) Urine RBC (Auto) Urine Bacteria Urine Glucose 10/31/18 10/31/18 06:47 07:45 WBC RBC Hgb Hct MCV MCH MCHC RDW Plt Count MPV Neut % (Auto) Lymph % (Auto) [place] % (Auto) Eos % (Auto) Baso % (Auto) Absolute Neuts (auto) Absolute Lymphs (auto) Absolute Monos (auto) Absolute Eos (auto) Absolute Basos (auto) Absolute Nucleated RBC Nucleated RBC % INR (Anticoag Therapy) APTT Sodium 131 L Potassium 3.8 Chloride 99 L Carbon Dioxide 26 Anion Gap 6 BUN 17 Creatinine 1.06 Est GFR ( Amer) 87.1 Est GFR (Non-Af Amer) 72.0 BUN/Creatinine Ratio 16.0 Glucose 199 H POC Glucose (mg/dL) 92 Lactic Acid Calcium 7.8 L Total Bilirubin AST ALT Alkaline Phosphatase Troponin I C-Reactive Protein Total Protein Albumin Globulin Albumin/Globulin Ratio Urine Color Urine Appearance Urine pH Ur Specific [place] Urine Protein Urine Ketones Urine Blood Urine Nitrate Urine Bilirubin Urine Urobilinogen Ur Leukocyte Esterase Urine WBC (Auto) Urine RBC (Auto) Urine Bacteria Urine Glucose Radiology Results: Patient Name: MADELINE UNDERWOOD Medical Record#: [id number] Ordering Physician: Dexter Hernández MD Acct.#: [id number] : 1960 Age: 58 Sex: M Location: EMERGENCY DEPARTMENT Exam Date: 10/30/18 1317 ADM Status: REG ER Order Information: US SOFT TISSUE HEAD OR NECK Accession Number: [id number] CPT: 29901 Indication: Neck swelling. Real-time sonography of the neck was performed. In the right posterior neck there is a vague hypoechoic area measuring up to 5.0 x 1.3 cm. This may represent phlegmonous change. This does not appear to represent fluid. Soft tissue swelling is noted. IMPRESSION: Hypoechoic area measuring approximately 5.0 x 1.3 cm which may represent some phlegmonous change. <Electronically signed by Renetta Wakefield MD in OV> 10/30/181428 Dictated By: Renetta Wakefield MD Dictated Date/Time: 10/30/181428 Transcribed Date/Time: 10/30/181425 Copy to: Patient Name: MADELINE UNDERWOOD Medical Record#: [id number] Ordering Physician: Dexter Hernández MD Acct.#: [id number] : 1960 Age: 58 Sex: M Location: EMERGENCY DEPARTMENT Exam Date: 10/30/18 1333 ADM Status: REG ER Order Information: US SOFT TISSUE LIMITED EXT-LT Accession Number: [id number] CPT: 76275 Indication: Infection, drainage. Real-time sonography of the thyroid was performed. In the lateral distal thigh there is a complex area measuring 1.5 x 0.6 x 1.9 cm. This is just under the subcutaneous layer and may represent a small abscess. In the proximal thigh no definite fluid collection is noted although soft tissue edema is noted. IMPRESSION: In the lateral distal thigh there is a hypoechoic area just under the skin measuring 1.5 x 0.6 x 1.9 cm and may represent a small abscess. <Electronically signed by Renetta Wakefield MD in OV> 10/30/18 1433 Dictated By: Renetta Wakefield MD Dictated Date/Time: 10/30/18 1433 Transcribed Date/Time: 10/30/18 1429 Copy to: Other Results/Reports: RUN DATE: 10/31/18 [facility] LAB LIVE PAGE 1 RUN TIME: [address] [place], [place] [address] Specimen Inquiry Name: MADELINE UNDERWOOD : [address]: Kvng Mays MD Acct: [id number] Unit: [id number] AGE: 58 Location: [place] [address]- Re10/30/18 SEX: M Status: ADM IN SPEC: [id number] LORENZO: 10/30/18-[address]: Roberta Haddad MD REQ: [id number] RECD: 10/30/18-1719 _ STATUS: RES OTHR DR: Kvng Mays MD SOURCE: NECK SPDESC: ORDERED: MRSA/SA SSTI, Culture & Stain COMMENTS: Verbal to [id number] by [email or web address] at 1859 on 10/30/18. Results read back accurately. Procedure Result Reported Site MRSA/S. aureus SSTI PCR Final 10/30/18- 1858 ML Organism 1 MRSA POSITIVE Organism 2 S.AUREUS POSITIVE Wound/Misc Gram Stain Final 10/31/18- 521 ML 3+ Epithelial Cells 2+ Neutrophils 2+ Nucleated Cells 4+ Gram Positive Cocci in Clusters, resembling Staph Wound/Misc Culture PENDING * ML - Main Lab RUN DATE: 10/31/18 [facility] LAB LIVE PAGE 1 RUN TIME: [address] [place], [place] [address] Specimen Inquiry Name: MADELINE UNDERWOOD : [address]: Kvng Mays MD Acct: [id number] Unit: [id number] AGE: 58 Location: [address] Re10/30/18 SEX: M Status: ADM IN SPEC: [id number] LORENZO: 10/30/18-[address]: Roberta Haddad MD REQ: [id number] RECD: 10/30/18 _ STATUS: COMP OTHR DR: Kvng Mays MD SOURCE: NASAL SPDESC: ORDERED: MRSA PCR-Nasal COMMENTS: Verbal to [id number] by [id number] at 2106 on 10/30/18. Results read back accurately. Procedure Result Reported Site MRSA PCR (Nasal) Final 10/30/18- 2106 ML Organism 1 MRSA DETECTED * ML - Main Lab . END OF REPORT DEPARTMENT OF PATHOLOGY, [address] [place] [address] [place] Hall M.D. Director [facility] # [id number] Assessment - Problem List Assessment: Patient Problems Boil, thigh (Acute) Carbuncle and furuncle of neck (Acute) Type 1 diabetes mellitus with hyperglycemia (Acute) Essential hypertension (Chronic) Hyperlipidemia (Chronic) Obesity (BMI 30.0-34.9) (Chronic) Skin picking habit (Chronic) Type 1 diabetes mellitus with microalbuminuria (Chronic) Type 1 diabetes mellitus with retinopathy (Chronic) Plan: Carbuncle and furuncle of neck (Acute) This is presumed Staphylococcus aureus as he is PCR positive nasal carriage and from wound. He is currently managed with vancomycin and cefepime. I will obtain an infectious disease consultation. At present, the surgeons do not wish to drain. I will treat his nasal carriage, but wait until his infection has had a couple of days of IV antibacterials. He will have hot compresses Boil, thigh (Acute) This is healing Type 1 diabetes mellitus with hyperglycemia (Acute) This is out of control. I will have some diabetes education during his hospital stay. He needs to change his attitude Essential hypertension (Chronic) controlled Hyperlipidemia (Chronic) controlled Obesity (BMI 30.0-34.9) (Chronic) Skin picking habit (Chronic) He needs to have help discontinuing this habit Type 1 diabetes mellitus with microalbuminuria (Chronic) Type 1 diabetes mellitus with retinopathy (Chronic) Ongoing issues I discussed the above with the patient and he agrees with the management plan.
[2018-10-31] MEDS ORDERED: Dextrose 50% Syringe 50 ML* 25 GM/50 ML SYRINGE IV PUSH PRN (10:02)
[2018-10-31] MEDS ORDERED: Vancomycin Trough Check NOTE FOLLOW UP ONE (12:30)
[2018-10-31] MEDS: GuaiFENesin DM sugar free* 5 ML UDC PO PRN (22:43)
[2018-10-31] MEDS: Vancomycin(*) 1,500 MG in NS 0.9% 250 ML* 250 ML IVPB SCH (23:11)
[2018-11-01] MEDS: Cefepime 1 GM in Dextrose(*) 1 GM/50 ML BAG IV SCH (05:24)
[2018-11-01] MEDS: Heparin VIAL(*) 5000 UNITS/ML VIAL (FIVE THOUSAND) SUBCUT SCH ×4 (05:27→21:31)
[2018-11-01 07:21] LABS: Hematocrit 34 % (42-52); Hemoglobin 11.9 g/dL (14.0-18.0); Mean Corpuscular HGB Conc 35 g/dL (31-36); Mean Corpuscular Hemoglobin 29 pg (27-31); Mean Corpuscular Volume 84 fL (80-94); Mean Platelet Volume 7.7 fL (7.4-10.4); Platelet Count 329 10^3/uL (150-450); Red Blood Count 4.06 10^6 /uL (4.18-5.48); Red Cell Distribution Width 13 % (10.5-15); White Blood Count 21.5 10^3/uL (3.5-10.8)
[2018-11-01 07:22] LABS: ABS Basophils 0.1 10^3/ul (0-0.2); ABS Eosinophils 0.6 10^3/ul (0-0.6); ABS Lymphocytes 0.9 10^3/ul (1.0-4.8); ABS Neutrophils 17.9 10^3/ul (1.5-7.7); Eosinophil % 2.9 %; Lymphocyte % 4.2 %; Nucleated Red Blood Cells % 0.1
[2018-11-01 07:35] LABS: C Reactive Protein 168.06 mg/L (<8.01); Calcium 7.8 mg/dL (8.6-10.3); EGFR African American 82.6 (>60); EGFR Non-African American 68.3 (>60); Potassium 3.7 mmol/L (3.5-5.0)
--- NOTE | 2018-11-01 08:11 | PN ---
Subjective - Subjective Reason for Note: Progress Note History: He continues to have pain from the carbuncle on the back of his neck. He denies fevers, chills or sweats. His appetite remains normal and he has had no adverse effects from his antibacterial treatment. His glycemic control is improving. Active Problems: Active Problems Boil, thigh (Acute) L02.429 Carbuncle and furuncle of neck (Acute) L02.12, L02.13 Type 1 diabetes mellitus with hyperglycemia (Acute) E10.65 Essential hypertension (Chronic) I10 Hyperlipidemia (Chronic) E78.5 Obesity (BMI 30.0-34.9) (Chronic) E66.9 Skin picking habit (Chronic) F42.4 Type 1 diabetes mellitus with microalbuminuria (Chronic) E10.29, R80.9 Type 1 diabetes mellitus with retinopathy (Chronic) E10.319 Current Medications: Current Medications Acetaminophen (Tylenol Tab*) 650 mg PO Q6H PRN PRN Reason: pain/fever Last Admin: 10/31/18 21:33 Dose: 650 mg Amlodipine Besylate (Norvasc Tab*) 5 mg PO DAILY [facility] Last Admin: 10/31/18 09:32 Dose: 5 mg Atorvastatin Calcium (Lipitor*) 40 mg PO DAILY [facility] Last Admin: 10/31/18 09:33 Dose: 40 mg Dextrose (D50w Syringe 50 Ml*) 12.5 gm IV PUSH .FOR FS < 60 - SS PRN PRN Reason: FS < 60 Guaifenesin/Dextromethorphan (Robitussin Dm Sugar Free*) 10 ml PO Q4H PRN PRN Reason: COUGH Last Admin: 10/31/18 22:43 Dose: 10 ml Heparin Sodium (Porcine) (Heparin Vial(*)) 5,000 units SUBCUT Q8HR [facility] Last Admin: 11/01/18 05:27 Dose: 5,000 units Cefepime HCl (Maxipime 1 Gm In Dextrose Duplex (*)) 1 gm in 50 mls @ 100 mls/ hr IV Q12H [facility] Last Admin: 11/01/18 05:24 Dose: 100 mls/hr Vancomycin HCl 1,500 mg/ (Sodium Chloride) 250 mls @ 166.667 mls/hr IVPB Q12H [facility] Last Admin: 10/31/18 23:11 Dose: 166.667 mls/hr Insulin Glargine (Lantus(*)) 26 units SUBCUT BID [facility] Last Admin: 10/31/18 22:43 Dose: 26 units Insulin Human Lispro (Humalog*) 0 units SUBCUT AC [facility]; Protocol Last Admin: 10/31/18 18:37 Dose: 4 units Insulin Human Lispro (Humalog*) 0 units SUBCUT ACHS [facility]; Protocol Last Admin: 10/31/18 22:46 Dose: 15 units Losartan Potassium (Cozaar Tab*) 100 mg PO DAILY [facility] Last Admin: 10/31/18 09:33 Dose: 100 mg Pharmacy Consult (Vancomycin Per Pharmacy*) 1 note FOLLOW UP .VANC PER PHARMACY [facility] Pharmacy Profile Note (Vancomycin Trough Check) 1 note FOLLOW UP 929 Stop: 11/02/18 09:31 Home Medications: Home Medications Medication Instructions Recorded Confirmed Type Atorvastatin* [Lipitor*] 40 mg PO DAILY 10/30/18 10/30/18 History Insulin GLARGINE(*) [Lantus(*)] 26 units SUBCUT BID 10/30/18 10/30/18 History Insulin LISPRO* [HumaLOG*] 16 units SUBCUT TID WITH MEALS 10/30/18 10/30/18 History Losartan TAB* [Cozaar TAB*] 100 mg PO DAILY 10/30/18 10/30/18 History amLODIPine TAB* [Norvasc 5 mg TAB*] 5 mg PO DAILY 10/30/18 10/30/18 History Allergies: Allergies Allergy/AdvReac Type Severity Reaction Status Date / Time Sulfa (Sulfonamide Allergy Intermediate Unknown Verified 10/30/18 11:06 Antibiotics) Reaction Details Objective - Vital Signs Vital Signs: Vital Signs 10/31/18 10/31/18 10/31/18 08:10 09:30 11:32 Temperature 98.4 F 98.8 F Pulse Rate 81 90 Respiratory 27 27 26 Rate Blood Pressure 146/69 153/66 (mmHg) O2 Sat by Pulse 97 96 Oximetry 10/31/18 10/31/18 10/31/18 18:43 19:34 20:00 Temperature 99.6 F 100.5 F Pulse Rate 92 99 Respiratory 20 18 24 Rate Blood Pressure 140/60 166/73 (mmHg) O2 Sat by Pulse 98 96 96 Oximetry 10/31/18 11/01/18 11/01/18 21:25 00:16 00:37 Temperature 97.8 F 98.3 F Pulse Rate 88 Respiratory 24 18 Rate Blood Pressure 144/68 (mmHg) O2 Sat by Pulse 96 Oximetry 11/01/18 03:36 Temperature 98.4 F Pulse Rate 100 Respiratory 20 Rate Blood Pressure 138/69 (mmHg) O2 Sat by Pulse 96 Oximetry - Intake and Output Intake and Output: Intake & Output 10/29/18 10/30/18 10/31/18 11/01/18 11:59 11:59 11:59 11:59 Intake Total 5330 3220 Output Total 400 1725 Balance 4930 1495 Weight 211 lb 6.4 oz Intake: IV Fluids 4140 300 ABX - VANCOMYCIN 250 Cefepime 50 50 NS 780 IVPB 270 ABX - VANCOMYCIN 270 Oral 920 2920 Output: Urine 400 1725 Other: Estimated Void Large # Bowel Movements 0 0 # Voids 0 1 ADLs: Meal Record Start: 10/30/18 16: 04 Freq: DAILY@0900,1400,1800 Status: Active Protocol: Created 10/30/18 16:04 System (Rec: 10/30/18 16:04 System MED-M22) Document 10/30/18 17:51 [id number] (Rec: 10/30/18 17:51 [id number] MED-C14) Document 10/31/18 09:00 [id number] (Rec: 10/31/18 13:04 [id number] MED-C09) Document 10/31/18 13:58 [id number] (Rec: 10/31/18 13:58 [id number] MED-M21) Document 10/31/18 14:00 [id number] (Rec: 10/31/18 14:37 [id number] MED-C09) Document 10/31/18 18:00 [id number] (Rec: 10/31/18 18:38 [id number] MED-M21) Intake and Output Start: 10/30/18 12: 16 Freq: Status: Active Protocol: Created 10/30/18 12:16 System (Rec: 10/30/18 12:16 System ED-C24) Intake and Output Start: 10/30/18 16: 04 Freq: DAILY@0600,1400,2200 Status: Active Protocol: Created 10/30/18 16:04 System (Rec: 10/30/18 16:04 System MED-M22) Document 10/30/18 22:00 [id number] (Rec: 10/30/18 23:42 [id number] MED-C14) Document 10/31/18 04:18 [id number] (Rec: 10/31/18 04:18 [id number] MED-C16) Document 10/31/18 05:38 [id number] (Rec: 10/31/18 05:38 [id number] MED-C16) Document 10/31/18 14:00 [id number] (Rec: 10/31/18 14:15 [id number] MED-C09) Document 10/31/18 15:24 [id number] (Rec: 10/31/18 15:24 [id number] MED-C09) Document 10/31/18 21:13 [id number] (Rec: 10/31/18 21:14 [id number] MED-C11) Document 11/01/18 04:15 [id number] (Rec: 11/01/18 04:16 [id number] MED-C11) - Physical Exam General Physical Exam Comment: The neck lesion is dressed. General: No Cyanosis, No Anemia, No Jaundice, No Clubbing Skin: Abnormal: Other - Hands slightly erythematous and mildly swollen - asymptomatic Lungs and Chest: Yes: Chest Expansion Full, Chest Expansion Symetrica, Percussion Note Resonant, Vessicular Breath Sounds. No: Crackles, Wheezes Heart Rate and Rhythm: Regular Additional Cardiovascular: Yes: Normal Heart Sounds. No: Heart Murmur, Pedal Edema Abdominal Exam: Yes: Soft. No: Abdominal Mass, Hepatomegaly, Abdominal Tenderness, Bowel Sounds Present - Neuro Orientation: A/O x3 Psychiatric: Depressed Speech: Normal Results - Results Lab Results: Laboratory Results - last 24 hr 10/31/18 10/31/18 10/31/18 06:47 07:45 12:11 WBC RBC Hgb Hct MCV MCH MCHC RDW Plt Count MPV Neut % (Auto) Lymph % (Auto) [place] % (Auto) Eos % (Auto) Baso % (Auto) Absolute Neuts (auto) Absolute Lymphs (auto) Absolute Monos (auto) Absolute Eos (auto) Absolute Basos (auto) Absolute Nucleated RBC Nucleated RBC % Sodium Potassium Chloride Carbon Dioxide Anion Gap BUN Creatinine Est GFR ( Amer) Est GFR (Non-Af Amer) BUN/Creatinine Ratio Glucose POC Glucose (mg/dL) 92 341 H Glucose Meter Confirm Hemoglobin A1c 9.2 H Calcium C-Reactive Protein Vancomycin Trough 10/31/18 10/31/18 10/31/18 12:26 17:10 21:17 WBC RBC Hgb Hct MCV MCH MCHC RDW Plt Count MPV Neut % (Auto) Lymph % (Auto) [place] % (Auto) Eos % (Auto) Baso % (Auto) Absolute Neuts (auto) Absolute Lymphs (auto) Absolute Monos (auto) Absolute Eos (auto) Absolute Basos (auto) Absolute Nucleated RBC Nucleated RBC % Sodium Potassium Chloride Carbon Dioxide Anion Gap BUN Creatinine Est GFR ( Amer) Est GFR (Non-Af Amer) BUN/Creatinine Ratio Glucose POC Glucose (mg/dL) 124 H 421 H* Glucose Meter Confirm Hemoglobin A1c Calcium C-Reactive Protein Vancomycin Trough 13.1 10/31/18 11/01/18 11/01/18 21:31 06:56 06:56 WBC 21.5 H RBC 4.06 L Hgb 11.9 L Hct 34 L MCV 84 MCH 29 MCHC 35 RDW 13 Plt Count 329 MPV 7.7 Neut % (Auto) 83.1 Lymph % (Auto) 4.2 [place] % (Auto) 9.2 Eos % (Auto) 2.9 Baso % (Auto) 0.6 Absolute Neuts (auto) 17.9 H Absolute Lymphs (auto) 0.9 L Absolute Monos (auto) 2.0 H Absolute Eos (auto) 0.6 Absolute Basos (auto) 0.1 Absolute Nucleated RBC 0.0 Nucleated RBC % 0.1 Sodium 131 L Potassium 3.7 Chloride 100 L Carbon Dioxide 26 Anion Gap 5 BUN 20 Creatinine 1.11 Est GFR ( Amer) 82.6 Est GFR (Non-Af Amer) 68.3 BUN/Creatinine Ratio 18.0 Glucose 178 H POC Glucose (mg/dL) Glucose Meter Confirm 401 H Hemoglobin A1c Calcium 7.8 L C-Reactive Protein 168.06 H Vancomycin Trough Assessment - Problem List Assessment: Patient Problems Boil, thigh (Acute) Carbuncle and furuncle of neck (Acute) Type 1 diabetes mellitus with hyperglycemia (Acute) Essential hypertension (Chronic) Hyperlipidemia (Chronic) Obesity (BMI 30.0-34.9) (Chronic) Skin picking habit (Chronic) Type 1 diabetes mellitus with microalbuminuria (Chronic) Type 1 diabetes mellitus with retinopathy (Chronic) Plan: Boil, thigh (Acute)Carbuncle and furuncle of neck (Acute) His WBC and % neuts remain the same, but his CRP has come down. I spoke with Dr. Elliott who will consult today. Type 1 diabetes mellitus with hyperglycemia (Acute)Type 1 diabetes mellitus with microalbuminuria (Chronic)Type 1 diabetes mellitus with retinopathy ( Chronic) His control is improving. 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 I don't want to do this until we have dealt with Staph aureus colonization and personal hygiene/skin picking. Essential hypertension (Chronic) Controlled Hyperlipidemia (Chronic) continue current rx Obesity (BMI 30.0-34.9) (Chronic) This is a major issue - we will address this as an outpatient Skin picking habit (Chronic) He understands the importance of stopping. The literature has looked at cognitive behavior therapy, fluoxetine, lamotrigine, escitalopram, fluvoxamine and topiramate as medications that may help - though the quality of this evidence is not great (RCT small samples, or studies that are not randomized). I will discuss these with him, he has a history of depression. I discussed the above with the patient and also other psycho-social barriers such as having to clear out the house of his mother who was a hoarder.
[2018-11-01] MEDS: Atorvastatin* 40 MG TAB PO SCH (10:00)
[2018-11-01] MEDS: amLODIPine TAB* 5 MG PO SCH (10:00)
[2018-11-01] MEDS: Losartan TAB* 25 MG PO SCH (10:00)
[2018-11-01] MEDS: Insulin GLARGINE(*) 1 UNITS UNIT SUBCUT SCH ×2 (10:01→21:31)
[2018-11-01] MEDS: Vancomycin(*) 1,500 MG in NS 0.9% 250 ML* 250 ML IVPB SCH ×2 (10:01→21:24)
[2018-11-01] MEDS: Insulin LISPRO* 1 UNITS UNIT SUBCUT SCH ×7 (10:02→21:24)
--- NOTE | 2018-11-01 13:13 | CONS ---
CONSULTATION REPORT: DATE OF CONSULT: 11/01/18 REQUESTING PHYSICIAN: Dr. Mays.* CONSULTING SERVICE: Infectious Disease. REASON FOR CONSULT: Cutaneous abscess. IMPRESSION: 1. Large cutaneous abscesses posterior neck and 2 on the posterior left thigh, some drainage from one of the neck, not particularly fluctuant yet, all due to methicillin-resistant Staphylococcus aureus. 2. 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 RECOMMENDATIONS: We will continue vancomycin, goal trough 10 to 15. As these abscesses soften up and potentially liquify, he may need incision debridement, which would potentially speed his recovery. HISTORY OF PRESENT ILLNESS: This is a 58-year-old male with type 1 diabetes, who developed pain and swelling in the posterior right neck and then 2 areas on the posterior left thigh. He does pick at some areas of his skin persistently, and he thinks some of those areas have become infected. Because of the pain, swelling and redness with some fevers at home, he came to the ER. He had started out at [facility], they routed him to the ER. The area on his neck was draining, was cultured, it is growing MRSA and ultrasound of the area showed 5 x 1.3 cm hypoechoic area with phlegmonous change. Ultrasound of the area in the lateral distal thigh had hypoechoic area which was 1 x 0.6 x 0.9 cm. All of them feel about the same since he has been here. His white count was initially 22, 20 yesterday, 21 today. No fevers. He has no new areas that are bothering him. Last time he had this happen was about 10 years ago, he thinks. PAST MEDICAL HISTORY: 1. 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 2. Depression. 3. Hypertension. 4. Obesity. 5. Hyperlipidemia. MEDICATIONS: 1. Tylenol. 2. Amlodipine. 3. Lipitor. 4. Cefepime 1 g every 12 hours. 5. Guaifenesin as needed. 6. Heparin subcutaneous injection. 7. Insulin glargine. 8. Insulin lispro. 9. Losartan. 10. Vancomycin 1500 mg every 12 hours. ALLERGIES: SULFA caused rash. FAMILY HISTORY: Mother had type 2 diabetes. Father at 59 from unknown causes. SOCIAL HISTORY: He lives with his mother. He is a past smoker. Does not use alcohol. REVIEW OF SYSTEMS: A 14-point review is all negative except as noted above in the history of present illness. PHYSICAL EXAM: Vital Signs: Temperature is 37, heart rate 90, respiratory rate 16, blood pressure 145/70, oxygen saturation 95% on room air. In general, he is awake, not in distress. Neurologic: He is oriented x3. Follows commands , answers questions appropriately. HEENT: There is no conjunctival hemorrhage. Oropharynx without lesions. Neck: Anterior neck is supple. Posterior right neck, diffuse induration, erythema and edema, with central small lesion which has some purulent drainage. Heart: Regular rate and rhythm without murmurs, rubs or gallops. Lungs: Clear to auscultation bilaterally. Abdomen: Soft, nontender, and nondistended. There is bowel sounds present. Skin: There are no rashes or splinter hemorrhage. Diffusely on the body, there are 1 to 2 mm eschar with surrounding erythema. Musculoskeletal: In addition to the right neck lesion, there is a posterior distal thigh 3 cm indurated area with surrounding diffuse erythema and on the more proximal medial thigh area, 4 to 5 cm erythema, edema, induration without fluctuance and tenderness. LABORATORY DATA: White blood cell count 21, hemoglobin 11, platelets 329. Creatinine 1.1. CRP 168, was 203 on 10/30/18. Please see impression and recommendations outlined above. Thank you for asking me to see Mr. Bui in consultation. [id number]/[facility] #: [id number] SONJA
--- NOTE | 2018-11-01 15:10 | CONS ---
CONSULTATION REPORT: DATE OF CONSULT: 11/01/18 SERVICE: General Surgery. ATTENDING SURGEON: Dr. Nighat Bentley. REQUESTING PHYSICIAN: Dr. Mays.* REASON FOR CONSULT: Neck cellulitis and possible abscess. HISTORY OF PRESENT ILLNESS: Mr. Bui is a 58-year-old gentleman with a history of type 1 diabetes that is poorly controlled, who says that he developed right- sided posterior neck pain last . He said that the swelling increased over the weekend and that he was having difficulty with the pain. Therefore, he came to the emergency room on Tuesday for evaluation. He also notes that he had had some recent ulcer on posterior left thigh. Of note, he does pick at multiple areas of his skin persistently, and he notes that this has happened to him approximately 10 years ago he thinks. He was seen in the emergency room and ultrasound was done showing phlegmonous area with likely cellulitis at the posterior neck. Surgery had been contacted; however, given that this appeared to be cellulitis, no further recommendations were made. He was admitted to the hospital and the area of the neck had a small area that was draining and this area was cultured and grew out MRSA. Since being admitted to the hospital, his white count has been persistently elevated and was 21 today. He has not been having any fevers. Surgery has been consulted regarding the possibility of an abscess. PAST MEDICAL HISTORY: Type 1 diabetes, depression, hypertension, obesity, hyperlipidemia. PAST SURGICAL HISTORY: None. MEDICATIONS: 1. Tylenol. 2. Amlodipine. 3. Lipitor. 4. Currently, he is taking cefepime. 5. Insulin. 6. Losartan. 7. Vancomycin. ALLERGIES: SULFA. FAMILY HISTORY: Mother has type 2 diabetes. SOCIAL HISTORY: He lives with his mother. He is a past smoker. REVIEW OF SYSTEMS: Some stiffness and soreness in his neck. PHYSICAL EXAMINATION: Vital Signs: Temperature is 98.3, pulse is 89, respiratory rate is 16, O2 sat 95% on room air, blood pressure 145/70. General : He is a middle-aged man, sitting up comfortably in bed, in no apparent distress. HEENT: His posterior right neck is swollen, indurated, and erythematous. There is small area of fibrinous exudate located over the right posterior neck. The whole area is swollen and edematous. There is no discrete or fluctuant area. The swelling and edema does extend a bit anteriorly towards the anterior neck. LABORATORY VALUES: On 11/01/18, white blood cell count of 21.5, hemoglobin 11.9, hematocrit 34, platelets are 329, and glucose is 303. IMAGING STUDIES: Ultrasound of the neck on 10/30/18, shows in the right posterior neck a vague hypoechoic area measuring up to 50 x 13 mm; this may represent phlegmonous change; this does not appear to represent fluid. Soft tissue swelling is noted. ASSESSMENT AND PLAN: Mr. Bui is a 58-year-old gentleman with a history of uncontrolled type 1 diabetes and a chronic habit of picking at skin lesions, who presents to the emergency room 2 days ago with right posterior neck swelling and erythema, and an ultrasound that looks like cellulitis and phlegmonous change. His white count has been persistently elevated in the low 20s. He is currently on vancomycin and cefepime, and his cultures from the wound has grown out MRSA. Dr. Elliott from Infectious Diseases has been consulted. Surgery has been consulted regarding the possibility of doing incision and drainage. I have recommended that the patient have a CT scan of the neck to better ascertain whether or not there is discrete collection that would be able to be targeted for an incision and drainage because on physical exam the entire area just appears to be very edematous with no discrete, palpable fluctuant lesions. Based on the CT scan, further recommendations will be made. [id number]/[facility] #: [id number] MTDD
[2018-11-01] MEDS: GuaiFENesin DM sugar free* 5 ML UDC PO PRN (16:01)
[2018-11-01] MEDS ORDERED: Iodixanol* (CONTRAST) 320 MG/ML 100 ML SDV IV ONE (16:54)
[2018-11-02] MEDS: GuaiFENesin DM sugar free* 5 ML UDC PO PRN (01:40)
[2018-11-02] MEDS ORDERED: ALPRAZolam TAB* 0.5 MG PO ONE (04:20)
[2018-11-02] MEDS: Heparin VIAL(*) 5000 UNITS/ML VIAL (FIVE THOUSAND) SUBCUT SCH ×3 (04:57→21:43)
[2018-11-02] MEDS: Insulin LISPRO* 1 UNITS UNIT SUBCUT SCH ×7 (08:18→21:42)
--- NOTE | 2018-11-02 08:25 | PN ---
Subjective - Subjective Reason for Note: Progress Note History: He developed dyspnea, hypertension and tachypnea last night. This was associated with anxiety+++ I gave him alprazolam po. This morning he is relaxed , but tachypnea. He has had no chest pain, nausea or diaphoresis. He is tolerating the antibacterials without adverse effect Active Problems: Active Problems Boil, thigh (Acute) L02.429 Carbuncle and furuncle of neck (Acute) L02.12, L02.13 Dyspnea (Acute) R06.00 Type 1 diabetes mellitus with hyperglycemia (Acute) E10.65 Essential hypertension (Chronic) I10 Hyperlipidemia (Chronic) E78.5 Obesity (BMI 30.0-34.9) (Chronic) E66.9 Skin picking habit (Chronic) F42.4 Type 1 diabetes mellitus with microalbuminuria (Chronic) E10.29, R80.9 Type 1 diabetes mellitus with retinopathy (Chronic) E10.319 Current Medications: Current Medications Acetaminophen (Tylenol Tab*) 650 mg PO Q6H PRN PRN Reason: pain/fever Last Admin: 10/31/18 21:33 Dose: 650 mg Amlodipine Besylate (Norvasc Tab*) [address] [facility] Last Admin: 11/01/18 10:00 Dose: 5 mg Atorvastatin Calcium (Lipitor*) [address] [facility] Last Admin: 11/01/18 10:00 Dose: 40 mg Dextrose (D50w Syringe 50 Ml*) 12.5 gm IV PUSH .FOR FS < 60 - SS PRN PRN Reason: FS < 60 Guaifenesin/Dextromethorphan (Robitussin Dm Sugar Free*) 10 ml PO Q4H PRN PRN Reason: COUGH Last Admin: 11/02/18 01:40 Dose: 10 ml Heparin Sodium (Porcine) (Heparin Vial(*)) 5,[address] [facility] Last Admin: 11/02/18 04:57 Dose: 5,000 units Vancomycin HCl 1,500 mg/ (Sodium Chloride) 250 mls @ 166.667 mls/hr IVPB Q12H [facility] Last Admin: 11/01/18 21:24 Dose: 166.667 mls/hr Insulin Glargine (Lantus(*)) [address] [facility] Last Admin: 11/01/18 21:31 Dose: 26 units Insulin Human Lispro (Humalog*) [address] [facility]; Protocol Last Admin: 11/01/18 18:26 Dose: 4 units Insulin Human Lispro (Humalog*) [address] [facility]; Protocol Last Admin: 11/02/18 08:18 Dose: Not Given Losartan Potassium (Cozaar Tab*) [address] [facility] Last Admin: 11/01/18 10:00 Dose: 100 mg Pharmacy Consult (Vancomycin Per Pharmacy*) 1 note FOLLOW UP .VANC PER PHARMACY [facility] Pharmacy Profile Note (Vancomycin Trough Check) 1 note FOLLOW UP 929 ONE Stop: 11/02/18 09:31 Home Medications: Home Medications Medication Instructions Recorded Confirmed Type Atorvastatin* [Lipitor*] 40 mg PO DAILY 10/30/18 10/30/18 History Insulin GLARGINE(*) [Lantus(*)] 26 units SUBCUT BID 10/30/18 10/30/18 History Insulin LISPRO* [HumaLOG*] 16 units SUBCUT TID WITH MEALS 10/30/18 10/30/18 History Losartan TAB* [Cozaar TAB*] 100 mg PO DAILY 10/30/18 10/30/18 History amLODIPine TAB* [Norvasc 5 mg TAB*] 5 mg PO DAILY 10/30/18 10/30/18 History Allergies: Allergies Allergy/AdvReac Type Severity Reaction Status Date / Time Sulfa (Sulfonamide Allergy Intermediate Unknown Verified 10/30/18 11:06 Antibiotics) Reaction Details Objective - Vital Signs Vital Signs: Vital Signs 11/01/18 11/01/18 11/01/18 10:16 10:17 19:56 Temperature 98.3 F 98.8 F Pulse Rate 89 93 Respiratory 16 16 18 Rate Blood Pressure 145/70 169/65 (mmHg) O2 Sat by Pulse 95 95 96 Oximetry 11/01/18 11/01/18 11/02/18 20:00 23:37 04:02 Temperature 98.1 F 98.1 F Pulse Rate 95 89 Respiratory 30 28 19 Rate Blood Pressure 156/68 190/73 (mmHg) O2 Sat by Pulse 96 91 93 Oximetry 11/02/18 11/02/18 11/02/18 04:29 04:47 07:35 Temperature 97.7 F Pulse Rate 85 89 Respiratory 30 29 Rate Blood Pressure 190/80 169/72 (mmHg) O2 Sat by Pulse 95 Oximetry 11/02/18 07:55 Temperature Pulse Rate Respiratory 28 Rate Blood Pressure (mmHg) O2 Sat by Pulse 95 Oximetry - Intake and Output Intake and Output: Intake & Output 10/30/18 10/31/18 11/01/18 11/02/18 11:59 11:59 11:59 11:59 Intake Total 5330 3580 1917 Output Total 400 1725 1900 Balance 4930 1855 17 Weight 211 lb 6.4 oz 211 lb Intake: IV Fluids 4140 300 45 ABX - VANCOMYCIN 250 20 Cefepime 50 50 NS 780 25 IVPB 270 552 ABX - VANCOMYCIN 270 552 Oral 920 3280 1320 Output: Urine 400 1725 1900 Other: Estimated Void Large Medium Date of Last Bowel 10/30/18 Movement # Bowel Movements 0 0 0 # Voids 0 1 1 ADLs: Meal Record Start: 10/30/18 16: 04 Freq: DAILY@0900,1400,1800 Status: Active Protocol: Created 10/30/18 16:04 System (Rec: 10/30/18 16:04 System MED-M22) Document 10/30/18 17:51 [id number] (Rec: 10/30/18 17:51 [id number] MED-C14) Document 10/31/18 09:00 [id number] (Rec: 10/31/18 13:04 [id number] MED-C09) Document 10/31/18 13:58 [id number] (Rec: 10/31/18 13:58 [id number] MED-M21) Document 10/31/18 14:00 [id number] (Rec: 10/31/18 14:37 [id number] MED-C09) Document 10/31/18 18:00 [id number] (Rec: 10/31/18 18:38 [id number] MED-M21) Document 11/01/18 09:00 [id number] (Rec: 11/01/18 09:29 [id number] MED-C11) Document 11/01/18 12:59 [id number] (Rec: 11/01/18 13:00 [id number] MED-C09) Document 11/01/18 18:15 [id number] (Rec: 11/01/18 18:15 [id number] MED-C14) Intake and Output Start: 10/30/18 12: 16 Freq: Status: Active Protocol: Created 10/30/18 12:16 System (Rec: 10/30/18 12:16 System ED-C24) Intake and Output Start: 10/30/18 16: 04 Freq: DAILY@0600,1400,2200 Status: Active Protocol: Created 10/30/18 16:04 System (Rec: 10/30/18 16:04 System MED-M22) Document 10/30/18 22:00 [id number] (Rec: 10/30/18 23:42 [id number] MED-C14) Document 10/31/18 04:18 [id number] (Rec: 10/31/18 04:18 [id number] MED-C16) Document 10/31/18 05:38 [id number] (Rec: 10/31/18 05:38 [id number] MED-C16) Document 10/31/18 14:00 [id number] (Rec: 10/31/18 14:15 [id number] MED-C09) Document 10/31/18 15:24 [id number] (Rec: 10/31/18 15:24 [id number] MED-C09) Document 10/31/18 21:13 [id number] (Rec: 10/31/18 21:14 [id number] MED-C11) Document 11/01/18 04:15 [id number] (Rec: 11/01/18 04:16 [id number] MED-C11) Document 11/01/18 13:02 [id number] (Rec: 11/01/18 13:02 [id number] MED-C09) Document 11/01/18 20:15 [id number] (Rec: 11/01/18 20:17 [id number] MED-C12) Document 11/02/18 05:01 [id number] (Rec: 11/02/18 05:04 [id number] MED-C26) - Physical Exam General Physical Exam Comment: Sitting upright, tachypneic. His neck shows darker swelling, less warm and tender General: No Cyanosis, No Anemia, No Jaundice, No Clubbing Lungs and Chest: Yes: Chest Expansion Full, Chest Expansion Symetrica, Percussion Note Resonant, Vessicular Breath Sounds, Crackles - fine basal crackles, Respiratory Distress. No: Wheezes, Use of Accessory Muscles Heart Rate and Rhythm: Regular Additional Cardiovascular: Yes: Normal Heart Sounds. No: Heart Murmur, Pedal Edema Abdominal Exam: Yes: Soft, Bowel Sounds Present. No: Distention - obese, Abdominal Mass, Abdominal Tenderness Results - Results Lab Results: Laboratory Results - last 24 hr 11/01/18 11/01/18 11/01/18 12:03 16:29 21:08 POC Glucose (mg/dL) 303 H 222 H 159 H Assessment - Problem List Assessment: Patient Problems Boil, thigh (Acute) Carbuncle and furuncle of neck (Acute) Dyspnea (Acute) Type 1 diabetes mellitus with hyperglycemia (Acute) Essential hypertension (Chronic) Hyperlipidemia (Chronic) Obesity (BMI 30.0-34.9) (Chronic) Skin picking habit (Chronic) Type 1 diabetes mellitus with microalbuminuria (Chronic) Type 1 diabetes mellitus with retinopathy (Chronic) Plan: Dyspnea (Acute) Clinically this sounds like pulmonary edema. Possibilities: * Volume overload * Acute CHF secondary to infection/diastolic dysfunction * infective endocarditis with failure * myocardial ischemia For EKG, P3, BNP, CXR, echocardiogram Carbuncle and furuncle of neck (Acute)/Boil, thigh (Acute) This is clinically improving Type 1 diabetes mellitus with hyperglycemia (Acute) Hyperglycemia during the day, coming down overnight. The boluses may be too small Essential hypertension (Chronic) high last evening Secondary diagnoses: Hyperlipidemia (Chronic) Obesity (BMI 30.0-34.9) (Chronic) Skin picking habit (Chronic) Type 1 diabetes mellitus with microalbuminuria (Chronic) Type 1 diabetes mellitus with retinopathy (Chronic) I discussed the above with the patient
--- NOTE | 2018-11-02 08:44 | PN ---
Progress Note - Progress Note Date of Service: 11/02/18 Note: Surgery Progress Note S: Patient says neck feels about the same today. Still stiff. He had an episode of SOB last night. CT neck done yesterday. O: Vital Signs: Temp Pulse Resp BP Pulse Ox 97.7 F 89 28 169/72 95 11/02/18 07:35 11/02/18 07:35 11/02/18 07:55 11/02/18 07:35 11/02/18 07:55 Laboratory Results - last 24 hr 11/01/18 11/01/18 11/01/18 12:03 16:29 21:08 POC Glucose (mg/dL) 303 H 222 H 159 H 11/02/18 07:47 POC Glucose (mg/dL) 117 H Intake & Output 11/01/18 11/02/18 11/02/18 22:59 06:59 14:59 Intake Total 519 558 Output Total 600 300 Balance -81 258 Weight 211 lb Intake: IV Fluids 25 20 ABX - VANCOMYCIN 20 NS 25 IVPB 254 298 ABX - VANCOMYCIN 254 298 Oral 240 240 Output: Urine 600 300 Other: Estimated Void Medium # Bowel Movements 0 0 # Voids 1 Physical exam: Neck: erythema and edema along posterior right neck with no discrete fluctuance. Some purulent discharge, not really expressible Imaging: Reviewed, CT neck shows soft tissue swelling with subcutaneous stranding in the right upper neck, no evidence of underlying abscess A/P: 58 M with MRSA neck cellulitis, no evidence of abscess - Recommend continuing IV abx, per Dr. Elliott - Surgery will sign off, please feel free to call any time for further questions or reconsult
[2018-11-02 09:17] LABS: BUN/Creatinine Ratio 18.7 (8-20); Calcium 8.1 mg/dL (8.6-10.3); EGFR African American 86.2 (>60); EGFR Non-African American 71.2 (>60)
[2018-11-02 09:28] LABS: Troponin I 0.04 ng/mL (<0.04)
[2018-11-02] MEDS ORDERED: Vancomycin Trough Check NOTE FOLLOW UP ONE (09:30)
[2018-11-02] MEDS: Atorvastatin* 40 MG TAB PO SCH (10:42)
[2018-11-02] MEDS: amLODIPine TAB* 5 MG PO SCH (10:42)
[2018-11-02] MEDS: Losartan TAB* 25 MG PO SCH (10:42)
[2018-11-02] MEDS: Vancomycin(*) 1,500 MG in NS 0.9% 250 ML* 250 ML IVPB SCH (10:42)
[2018-11-02] MEDS: Insulin GLARGINE(*) 1 UNITS UNIT SUBCUT SCH ×2 (10:44→21:42)
[2018-11-02] MEDS ORDERED: Furosemide IV* 10 MG/ML VIAL (40 MG) IV ONE (10:46)
[2018-11-02] MEDS: Metoprolol Succinate XL TAB* 25 MG PO SCH (21:41)
[2018-11-02] MEDS: Vancomycin(*) 1,000 MG in NS 0.9% 250 ML* 250 ML IVPB SCH (21:49)
[2018-11-03] MEDS: Heparin VIAL(*) 5000 UNITS/ML VIAL (FIVE THOUSAND) SUBCUT SCH ×3 (05:48→21:20)
--- NOTE | 2018-11-03 07:15 | PN ---
Subjective - Subjective Reason for Note: Progress Note History: The cellulitis on his neck is draining some serosanguinous fluid on his pillow. He has had no fevers, sweats or chills. Yesterday, I was evaluating his tachypnea, tachycardia and hypertension. He attributes this to stress - he is having to deal with insurance/estate issues and family dynamics. He denies chest pain, dyspnea, palpitations. He is more hyperglycemic Active Problems: Active Problems Boil, thigh (Acute) L02.429 Carbuncle and furuncle of neck (Acute) L02.12, L02.13 Dyspnea (Acute) R06.00 Type 1 diabetes mellitus with hyperglycemia (Acute) E10.65 Essential hypertension (Chronic) I10 Hyperlipidemia (Chronic) E78.5 Obesity (BMI 30.0-34.9) (Chronic) E66.9 Skin picking habit (Chronic) F42.4 Type 1 diabetes mellitus with microalbuminuria (Chronic) E10.29, R80.9 Type 1 diabetes mellitus with retinopathy (Chronic) E10.319 Current Medications: Current Medications Acetaminophen (Tylenol Tab*) 650 mg PO Q6H PRN PRN Reason: pain/fever Last Admin: 10/31/18 21:33 Dose: 650 mg Amlodipine Besylate (Norvasc Tab*) 5 mg PO DAILY [facility] Last Admin: 11/02/18 10:42 Dose: 5 mg Atorvastatin Calcium (Lipitor*) 40 mg PO DAILY [facility] Last Admin: 11/02/18 10:42 Dose: 40 mg Dextrose (D50w Syringe 50 Ml*) 12.5 gm IV PUSH .FOR FS < 60 - SS PRN PRN Reason: FS < 60 Guaifenesin/Dextromethorphan (Robitussin Dm Sugar Free*) 10 ml PO Q4H PRN PRN Reason: COUGH Last Admin: 11/02/18 01:40 Dose: 10 ml Heparin Sodium (Porcine) (Heparin Vial(*)) 5,000 units SUBCUT Q8HR [facility] Last Admin: 11/03/18 05:48 Dose: 5,000 units Vancomycin HCl 1,000 mg/ (Sodium Chloride) 250 mls @ 166.667 mls/hr IVPB Q12H [facility] Last Admin: 11/02/18 21:49 Dose: 166.667 mls/hr Insulin Glargine (Lantus(*)) 26 units SUBCUT BID [facility] Last Admin: 11/02/18 21:42 Dose: 26 units Insulin Human Lispro (Humalog*) 0 units SUBCUT AC [facility]; Protocol Last Admin: 11/02/18 18:20 Dose: 4 units Insulin Human Lispro (Humalog*) 0 units SUBCUT ACHS [facility]; Protocol Last Admin: 11/02/18 21:42 Dose: 6 units Losartan Potassium (Cozaar Tab*) 100 mg PO DAILY [facility] Last Admin: 11/02/18 10:42 Dose: 100 mg Metoprolol Succinate (Toprol Xl Tab*) 25 mg PO BID [facility] Last Admin: 11/02/18 21:41 Dose: 25 mg Pharmacy Consult (Vancomycin Per Pharmacy*) 1 note FOLLOW UP .VANC PER PHARMACY [facility] Pharmacy Profile Note (Vancomycin Trough Check) 1 note FOLLOW UP 929 ONE Stop: 11/04/18 09:31 Home Medications: Home Medications Medication Instructions Recorded Confirmed Type Atorvastatin* [Lipitor*] 40 mg PO DAILY 10/30/18 10/30/18 History Insulin GLARGINE(*) [Lantus(*)] 26 units SUBCUT BID 10/30/18 10/30/18 History Insulin LISPRO* [HumaLOG*] 16 units SUBCUT TID WITH MEALS 10/30/18 10/30/18 History Losartan TAB* [Cozaar TAB*] 100 mg PO DAILY 10/30/18 10/30/18 History amLODIPine TAB* [Norvasc 5 mg TAB*] 5 mg PO DAILY 10/30/18 10/30/18 History Allergies: Allergies Allergy/AdvReac Type Severity Reaction Status Date / Time Sulfa (Sulfonamide Allergy Intermediate Unknown Verified 10/30/18 11:06 Antibiotics) Reaction Details Objective - Vital Signs Vital Signs: Vital Signs 11/02/18 11/02/18 11/02/18 07:35 07:42 07:55 Temperature 97.7 F Pulse Rate 89 Respiratory 29 28 28 Rate Blood Pressure 169/72 (mmHg) O2 Sat by Pulse 95 95 Oximetry 11/02/18 11/02/18 11/02/18 08:45 08:52 11:47 Temperature 98.2 F Pulse Rate 93 Respiratory 30 32 Rate Blood Pressure 178/81 (mmHg) O2 Sat by Pulse 96 97 Oximetry 11/02/18 11/02/18 11/02/18 13:02 15:16 20:00 Temperature 98.4 F Pulse Rate 92 Respiratory 28 46 30 Rate Blood Pressure 186/71 (mmHg) O2 Sat by Pulse 93 95 Oximetry 11/02/18 11/02/18 11/03/18 21:21 23:32 03:35 Temperature 98.7 F 98.5 F 97.9 F Pulse Rate 85 80 81 Respiratory 35 25 30 Rate Blood Pressure 156/77 155/72 162/66 (mmHg) O2 Sat by Pulse 95 95 91 Oximetry 11/03/18 03:49 Temperature Pulse Rate Respiratory Rate Blood Pressure (mmHg) O2 Sat by Pulse 96 Oximetry - Intake and Output Intake and Output: Intake & Output 10/31/18 11/01/18 11/02/18 11/03/18 11:59 11:59 11:59 11:59 Intake Total 5330 3580 2277 815 Output Total 400 1725 1900 1650 Balance 4930 1855 377 -835 Weight 211 lb 6.4 oz 211 lb Intake: IV Fluids 4140 300 45 50 ABX - VANCOMYCIN 250 20 Cefepime 50 50 NS 780 25 50 IVPB 270 552 285 ABX - VANCOMYCIN 270 552 285 Oral 920 3280 1680 480 Output: Urine 400 1725 1900 1650 Other: Estimated Void Large Medium Date of Last Bowel 10/30/18 Movement # Bowel Movements 0 0 0 1 Estimated Stool Amount Medium # Voids 0 1 1 ADLs: Meal Record Start: 10/30/18 16: 04 Freq: DAILY@0900,1400,1800 Status: Active Protocol: Created 10/30/18 16:04 System (Rec: 10/30/18 16:04 System MED-M22) Document 10/30/18 17:51 [id number] (Rec: 10/30/18 17:51 [id number] MED-C14) Document 10/31/18 09:00 [id number] (Rec: 10/31/18 13:04 [id number] MED-C09) Document 10/31/18 13:58 [id number] (Rec: 10/31/18 13:58 [id number] MED-M21) Document 10/31/18 14:00 [id number] (Rec: 10/31/18 14:37 [id number] MED-C09) Document 10/31/18 18:00 [id number] (Rec: 10/31/18 18:38 [id number] MED-M21) Document 11/01/18 09:00 [id number] (Rec: 11/01/18 09:29 [id number] MED-C11) Document 11/01/18 12:59 [id number] (Rec: 11/01/18 13:00 IKY1060 MED-C09) Document 11/01/18 18:15 [id number] (Rec: 11/01/18 18:15 [id number] MED-C14) Document 11/02/18 09:00 [id number] (Rec: 11/02/18 13:37 [id number] MED-C11) Document 11/02/18 13:37 [id number] (Rec: 11/02/18 13:37 [id number] MED-C11) Document 11/02/18 18:00 [id number] (Rec: 11/02/18 18:57 [id number] MED-C11) Intake and Output Start: 10/30/18 12: 16 Freq: Status: Active Protocol: Created 10/30/18 12:16 System (Rec: 10/30/18 12:16 System ED-C24) Intake and Output Start: 10/30/18 16: 04 Freq: DAILY@0600,1400,2200 Status: Active Protocol: Created 10/30/18 16:04 System (Rec: 10/30/18 16:04 System MED-M22) Document 10/30/18 22:00 [id number] (Rec: 10/30/18 23:42 [id number] MED-C14) Document 10/31/18 04:18 [id number] (Rec: 10/31/18 04:18 [id number] MED-C16) Document 10/31/18 05:38 [id number] (Rec: 10/31/18 05:38 [id number] MED-C16) Document 10/31/18 14:00 [id number] (Rec: 10/31/18 14:15 [id number] MED-C09) Document 10/31/18 15:24 [id number] (Rec: 10/31/18 15:24 [id number] MED-C09) Document 10/31/18 21:13 [id number] (Rec: 10/31/18 21:14 [id number] MED-C11) Document 11/01/18 04:15 [id number] (Rec: 11/01/18 04:16 [id number] MED-C11) Document 11/01/18 13:02 [id number] (Rec: 11/01/18 13:02 [id number] MED-C09) Document 11/01/18 20:15 [id number] (Rec: 11/01/18 20:17 [id number] MED-C12) Document 11/02/18 05:01 [id number] (Rec: 11/02/18 05:04 [id number] MED-C26) Document 11/02/18 14:00 [id number] (Rec: 11/02/18 14:23 [id number] MED-C11) Document 11/02/18 18:57 [id number] (Rec: 11/02/18 19:03 [id number] MED-C11) - Physical Exam General Physical Exam Comment: There is sero-sanguinous fluid on his pillow. The area of his cellulitis remains about the same General: No Cyanosis, No Anemia, No Jaundice, No Clubbing Lungs and Chest: Yes: Chest Expansion Full, Chest Expansion Symetrica, Percussion Note Resonant, Vessicular Breath Sounds, Crackles - bibasilar fine crackles. No: Wheezes, Respiratory Distress Heart Rate and Rhythm: Regular Additional Cardiovascular: Yes: Normal Heart Sounds. No: Heart Murmur, Pedal Edema Abdominal Exam: Yes: Soft, Bowel Sounds Present. No: Distention, Abdominal Tenderness Results - Results Lab Results: Laboratory Results - last 24 hr 11/02/18 11/02/18 11/02/18 07:47 08:45 08:45 Sodium 133 L Potassium 4.0 Chloride 99 L Carbon Dioxide 28 Anion Gap 6 BUN 20 Creatinine 1.07 Est GFR ( Amer) 86.2 Est GFR (Non-Af Amer) 71.2 BUN/Creatinine Ratio 18.7 Glucose 130 H POC Glucose (mg/dL) 117 H Calcium 8.1 L Troponin I 0.04 H* B-Natriuretic Peptide Vancomycin Trough 17.9 11/02/18 11/02/18 11/02/18 08:45 12:06 16:46 Sodium Potassium Chloride Carbon Dioxide Anion Gap BUN Creatinine Est GFR ( Amer) Est GFR (Non-Af Amer) BUN/Creatinine Ratio Glucose POC Glucose (mg/dL) 266 H 343 H Calcium Troponin I B-Natriuretic Peptide 250 H Vancomycin Trough 11/02/18 21:14 Sodium Potassium Chloride Carbon Dioxide Anion Gap BUN Creatinine Est GFR ( Amer) Est GFR (Non-Af Amer) BUN/Creatinine Ratio Glucose POC Glucose (mg/dL) 230 H Calcium Troponin I B-Natriuretic Peptide Vancomycin Trough Radiology Results: Patient Name: MADELINE UNDERWOOD Medical Record#: [id number] Ordering Physician: Kvng Mays MD Acct.#: [id number] : 1960 Age: 58 Sex: M Location: [address] [place] [address] MEDICAL Exam Date: 11/02/18826 ADM Status: ADM IN Order Information: CHEST PA & LAT 2 VWS Accession Number: [id number] CPT: 05671 INDICATION: Acute dyspnea. Question pulmonary edema. COMPARISON: November 01, [address] of the neck. TECHNIQUE: Dual energy PA and routine lateral views of the chest were obtained. REPORT: Mild prominence of interstitial markings and small bilateral dependent pleural effusions with proportional atelectasis. Negative for pneumothorax. Negative for cardiomegaly. Unremarkable central pulmonary vasculature and mediastinal contours. IMPRESSION: #. Nonspecific small bilateral pleural effusions with proportional basilar atelectasis. #. No compelling specific evidence for pulmonary edema. <Electronically signed by Louie Garcia MD in [place]> 11/02/181458 Dictated By: Louie Garcia MD Dictated Date/Time: 11/02/181458 Transcribed Date/Time: 11/02/181456 Copy to: CC:Kvng Mays MD; Roberta Haddad MD; Nighat Bentley MD; Logan Elliott MD Imaging - [facility] Imaging - [place] [facility] Imaging - [facility] [address] [address] ph ([phone]) ph ([phone]) ph ([phone]) This report is only to be considered final once signed by the Provider(s) as displayed in the "<Electronically Signed by >" field (s). Absence of a signature indicates the report is in a draft status and still needs to be finalized. In the event this document was created by someone other than the signing Provider, the individual initiating the document will be listed in the "Entered by:" or "Dictated by:" cedillo. 1 of 1 EKG Report: EK sinus rhythgm MI 152 QTc 444 QRS axis - normal sinus rhythm - I reviewed the EKG directly Other Results/Reports: RUN DATE: 11/03/18 [facility] LIVE PAGE 1 RUN TIME: [address] [place] [address] Specimen Inquiry Name: MADELINE UNDERWOOD : [address]: Kvng Mays MD Acct: [id number] Unit: [id number] AGE: 58 Location: [place] [address] Re10/30/18 SEX: M Status: ADM IN SPEC: [id number] LORENZO: 10/30/18-[address]: Roberta Haddad MD REQ: [id number] RECD: 10/30/18 _ STATUS: COMP OTHR DR: Kvng Mays MD SOURCE: NECK SPDESC: ORDERED: MRSA/SA SSTI, Culture & Stain COMMENTS: Verbal to [id number] by [id number] at 1859 on 10/30/18. Results read back accurately. Procedure Result Reported Site MRSA/S. aureus SSTI PCR Final 10/30/18- 185 ML Organism 1 MRSA POSITIVE Organism 2 S.AUREUS POSITIVE Wound/Misc Gram Stain Final 10/31/18- 521 ML 3+ Epithelial Cells 2+ Neutrophils 2+ Nucleated Cells 4+ Gram Positive Cocci in Clusters, resembling Staph Wound/Misc Culture Final 11/01/18- 0916 ML Organism 1 MRSA Quantity 3+ Consistent with previous results. 1. MRSA M.I.C. RX Penicillin >=0.5 R Clindamycin <=0.25 S Erythromycin >=8 R Gentamicin <=0.5 S Linezolid 2 S Oxacillin >=4 R * Quinupristin/Dalfopristin <=0.25 S Rifampin <=0.5 S Tetracycline <=1 S Doxycycline - Deduced S Trimethoprim/Sulfamethoxazole <=10 S Vancomycin 1 S Imipenem-Deduced R * Ampicillin/Sulbactam-Deduced R Cefazolin-Deduced R * These antibiotics are not available in the [facility] Formulary Contact the Microbiology Department for any additional antibiotic reporting. * [facility] - Main Lab . END OF REPORT DEPARTMENT OF PATHOLOGY, [address] [place] [address] [place] Hall M.D. Director [facility] # [id number] Assessment - Problem List Assessment: Patient Problems Boil, thigh (Acute) Carbuncle and furuncle of neck (Acute) Dyspnea (Acute) Type 1 diabetes mellitus with hyperglycemia (Acute) Essential hypertension (Chronic) Hyperlipidemia (Chronic) Obesity (BMI 30.0-34.9) (Chronic) Skin picking habit (Chronic) Type 1 diabetes mellitus with microalbuminuria (Chronic) Type 1 diabetes mellitus with retinopathy (Chronic) Plan: Boil, thigh (Acute)Carbuncle and furuncle of neck (Acute) He is reeceiving IV Vancomycin for MRSA. I will decide with infectious diseases when he can be switched to oral agents - this MRSA has multiple useful sensitivities to oral medications. Dyspnea (Acute)Essential hypertension (Chronic) I reviewed the results of yesterday's investigations. I reviewed the EKG and CXR - no signs of ischemia or pulmonary edema. I gave him a trial of furosemide - no help. His troponin I and BNP were not discriminating. I will check a transthoracic echocardiogram today. If this is all due to his level of stress, the metoprolol XL 25 mg twice daily is a good choice - I will consider increasing the dose if it is not effective. Type 1 diabetes mellitus with hyperglycemia (Acute) This also is elevated - this could be due to stress. I will increase his insulin. Secondary diagnoses: Hyperlipidemia (Chronic) Obesity (BMI 30.0-34.9) (Chronic) Skin picking habit (Chronic) Type 1 diabetes mellitus with microalbuminuria (Chronic) Type 1 diabetes mellitus with retinopathy (Chronic) I offered Mr. Underwood some psychopharmacology - he declined. He thinks this is situational anxiety. I will continue current Rx.
[2018-11-03] MEDS: Insulin LISPRO* 1 UNITS UNIT SUBCUT SCH ×7 (08:16→21:19)
[2018-11-03] MEDS ORDERED: Insulin GLARGINE(*) 1 UNITS UNIT SUBCUT SCH (09:00)
--- NOTE | 2018-11-03 09:38 | PN ---
Progress Note - Progress Note Date of Service: 11/03/18 SOAP: Subjective: CC: Abscesses HPI: Mr. Bui is a 58 yo male with PMH significant for DM1, depression, HTN, obesity, and HLD who presented to the emergency room with complaints of posterior right neck and posterior left thigh swelling. Denies fever, chills, shortness of breath, chest discomfort, nausea, vomiting, or diarrhea. Has some discomfort at the site of abscess at the right posterior neck, and reports bloody and purulent drainage. Reports that the abscesses on his left posterior thigh are improving. He is anxious to get home, but understands that he needs IV ABX. Objective: Vital Signs - 8 hr 11/03/18 11/03/18 11/03/18 03:35 03:49 07:47 Temperature 97.9 F 98.4 F Pulse Rate 81 81 Respiratory 30 33 Rate Blood Pressure 162/66 155/78 (mmHg) O2 Sat by Pulse 91 96 91 Oximetry Physical Exam: General: NAD, sitting up in a chair Neurological: Alert and Oriented x 4 HEENT: Moist MM, no thrush Cardiovascular: Heart rate regular, no murmur Respiratory: Lungs clear bilateral Abdominal: Bowel sounds present; ABD soft, non tender and non distended Skin: Large area of erythema and induration to the posterior right neck, measuring 11 cm x 11 cm. There is an area of crusting in the center, measuring 5 cm x 4 cm. There is some purulent drainage noted from this area. There is an area of erythema on the posterior thigh above the knee with a scabbed area, measuring 2 cm x 1 cm. Unable to visualize the second area on the posterior right thigh. Laboratory Last Values WBC 21.5 10^3/uL (3.5-10.8) H 11/01/18 06:56 RBC 4.06 10^6 /uL (4.18-5.48) L 11/01/18 06:56 Hgb 11.9 g/dL (14.0-18.0) L 11/01/18 06:56 Hct 34 % (42-52) L 11/01/18 06:56 MCV 84 fL (80-94) 11/01/18 06:56 MCH 29 pg (27-31) 11/01/18 06:56 MCHC 35 g/dL (31-36) 11/01/18 06:56 RDW 13 % (10.5-15) 11/01/18 06:56 Plt Count 329 10^3/uL (150-450) 11/01/18 06:56 MPV 7.7 fL (7.4-10.4) 11/01/18 06:56 Neut % (Auto) 83.1 % 11/01/18 06:56 Lymph % (Auto) 4.2 % 11/01/18 06:56 Ward % (Auto) 9.2 % 11/01/18 06:56 Eos % (Auto) 2.9 % 11/01/18 06:56 Baso % (Auto) 0.6 % 11/01/18 06:56 Absolute Neuts (auto) 17.9 10^3/ul (1.5-7.7) H 11/01/18 06:56 Absolute Lymphs (auto) 0.9 10^3/ul (1.0-4.8) L 11/01/18 06:56 Absolute Monos (auto) 2.0 10^3/ul (0-0.8) H 11/01/18 06:56 Absolute Eos (auto) 0.6 10^3/ul (0-0.6) 11/01/18 06:56 Absolute Basos (auto) 0.1 10^3/ul (0-0.2) 11/01/18 06:56 Absolute Nucleated RBC 0.0 10^3/ul 11/01/18 06:56 Nucleated RBC % 0.1 11/01/18 06:56 INR (Anticoag Therapy) 1.20 (0.82-1.09) H 10/30/18 13:37 APTT 34.9 seconds (26.0-36.3) 10/30/18 13:37 Sodium 133 mmol/L (135-145) L 11/02/18 08:45 Potassium 4.0 mmol/L (3.5-5.0) 11/02/18 08:45 Chloride 99 mmol/L (101-111) L 11/02/18 08:45 Carbon Dioxide 28 mmol/L (22-32) 11/02/18 08:45 Anion Gap 6 mmol/L (2-11) 11/02/18 08:45 BUN 20 mg/dL (6-24) 11/02/18 08:45 Creatinine 1.07 mg/dL (0.67-1.17) 11/02/18 08:45 Est GFR ( Amer) 86.2 (>60) 11/02/18 08:45 Est GFR (Non-Af Amer) 71.2 (>60) 11/02/18 08:45 BUN/Creatinine Ratio 18.7 (8-20) 11/02/18 08:45 Glucose 130 mg/dL (70-100) H 11/02/18 08:45 POC Glucose (mg/dL) 82 mg/dL (70-100) 11/03/18 08:26 Glucose Meter Confirm 401 mg/dL (70-100) H 10/31/18 21:31 Hemoglobin A1c 9.2 % (4.0-5.6) H 10/31/18 06:47 Lactic Acid 1.8 mmol/L (0.5-2.0) 10/30/18 17:23 Calcium 8.1 mg/dL (8.6-10.3) L 11/02/18 08:45 Total Bilirubin 1.10 mg/dL (0.2-1.0) H 10/30/18 13:37 AST 8 U/L (13-39) L 10/30/18 13:37 ALT 6 U/L (7-52) L 10/30/18 13:37 Alkaline Phosphatase 108 U/L (34-104) H 10/30/18 13:37 Troponin I 0.04 ng/mL (<0.04) H* 11/02/18 08:45 C-Reactive Protein 168.06 mg/L (<8.01) H 11/01/18 06:56 B-Natriuretic Peptide 250 pg/mL (<=100) H 11/02/18 08:45 Total Protein 7.1 g/dL (6.4-8.9) 10/30/18 13:37 Albumin 3.5 g/dL (3.2-5.2) 10/30/18 13:37 Globulin 3.6 g/dL (2-4) 10/30/18 13:37 Albumin/Globulin Ratio 1.0 (1-3) 10/30/18 13:37 Urine Color Yellow 10/30/18 11:00 Urine Appearance Cloudy 10/30/18 11:00 Urine pH 5.0 (5-9) 10/30/18 11:00 Ur Specific Stanton 1.030 (1.010-1.030) 10/30/18 11:00 Urine Protein 2+(100 mg/dl) (Negative) A 10/30/18 11:00 Urine Ketones 1+ (Negative) A 10/30/18 11:00 Urine Blood 2+ (Negative) A 10/30/18 11:00 Urine Nitrate Negative (Negative) 10/30/18 11:00 Urine Bilirubin Negative (Negative) 10/30/18 11:00 Urine Urobilinogen Negative (Negative) 10/30/18 11:00 Ur Leukocyte Esterase Negative (Negative) 10/30/18 11:00 Urine WBC (Auto) Trace(0-5/hpf) (Absent) 10/30/18 11:00 Urine RBC (Auto) 1+(3-5/hpf) (Absent) A 10/30/18 11:00 Urine Bacteria Absent (Absent) 10/30/18 11:00 Urine Glucose 3+(>=500 mg/dl) (Negative) A 10/30/18 11:00 Vancomycin Trough 17.9 mcg/mL 11/02/18 08:45 Microbiology 10/30/18 13:37 Aerobic Blood Culture - Preliminary Blood Venous No Growth Day 3 Anaerobic Blood Culture - Preliminary No Growth Day 3 10/30/18 13:38 Aerobic Blood Culture - Preliminary Blood Venous No Growth Day 3 Anaerobic Blood Culture - Preliminary No Growth Day 3 10/30/18 16:16 Skin and Soft Tissue MRSA/MSSA (PCR - Final Neck Mrsa Positive S.aureus Positive Gram Stain - Final Wound Culture - Final MRSA 10/30/18 11:00 Urine Culture - Final Urine No Growth (<1,000 CFU/mL) 10/30/18 17:30 Nasal Screen MRSA (PCR) - Final Nasal Mrsa Detected Assessment: 1. Large posterior neck and posterior left thigh cutaneous abscesses. Wound culture with MRSA. Blood cultures with no growth, day 3. 2. 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 3. Obesity. BMI 32.1 Plan: Continue Vancomycin, goal trough 10-15 until significant improvement in the swelling of the neck. If a drainable fluid collection presents, discuss with surgery about getting an I+D. Once ready for discharge can switch to an oral agent.
[2018-11-03] MEDS: Vancomycin(*) 1,000 MG in NS 0.9% 250 ML* 250 ML IVPB SCH ×2 (09:43→21:20)
[2018-11-03] MEDS: Metoprolol Succinate XL TAB* 25 MG PO SCH ×2 (09:44→21:20)
[2018-11-03] MEDS: Losartan TAB* 25 MG PO SCH (09:45)
[2018-11-03] MEDS: Atorvastatin* 40 MG TAB PO SCH (09:45)
[2018-11-03] MEDS: amLODIPine TAB* 5 MG PO SCH (09:45)
--- NOTE | 2018-11-03 15:52 | ECHO ---
*[facility] [place]* [place] [address] Fax #: [phone] Transthoracic Echocardiogram Patient: Ramya, Height: 68 in / Shelly Marroquin 172.7 cm : 1960 Weight: 210.6 lb / Study Date: 11/03/2018 95.7 kg Age: 58 BP: 155 / 78 Gender: M BMI/BSA: 32.1 HR: 81 bpm kg/m^2 / 2.09 m^2 *License Examiner: * Michelle Omer [facility] *Referring Physician: * Kvng Mays *Reading Physician: * Gomez Peoples MD Indications: Bacteremia. History: Risk factors: Hypertension. Diabetes mellitus. Obese. Hyperlipidemia. Conclusions Summary: 1. Left ventricle: The cavity size is normal. There is mild concentric hypertrophy. Systolic function is normal. The estimated ejection fraction is 55-60%. 2. Right ventricle: The cavity size is mildly dilated. Systolic function is normal. 3. Left atrium: The atrium is moderately dilated. 4. No significant valvular abnormalities noted. Recommendations: None prior for comparison at time of interpretation. Study data: Transthoracic echocardiogram. Procedure: Transthoracic echocardiography was performed. Image quality was fair. Complete 2D, spectral Doppler, and color flow Doppler. Location: Bedside. Patient status: Inpatient. Patient room number: 412-2. Rhythm: Normal sinus rhythm. Findings Left ventricle: The cavity size is normal. There is mild concentric hypertrophy. Systolic function is normal. The estimated ejection fraction is 55-60%. Wall motion is normal; there are no regional wall motion abnormalities. Abnormal diastolic filling pattern Right ventricle: The cavity size is mildly dilated. Systolic function is normal. The tricuspid jet envelope definition is inadequate for estimation of RV systolic pressure. There are no indirect findings (abnormal RV volume or geometry, altered pulmonary flow velocity profile, or leftward septal displacement) which would suggest moderate or severe pulmonary hypertension. Left atrium: The atrium is moderately dilated. Right atrium: The atrium is normal in size. Mitral valve: The annulus is mildly calcified. The leaflets are mildly thickened. There is no evidence of a vegetation. There is no evidence of stenosis. There is trace regurgitation. Aortic valve: The valve is trileaflet. The leaflets are mildly thickened. There is no evidence of a vegetation. There is no evidence of stenosis. There is no significant regurgitation. Tricuspid valve: The leaflets are normal thickness. There is no evidence of a vegetation. There is no evidence of stenosis. There is physiologic regurgitation. Pulmonic valve: The leaflets are normal thickness. There is no evidence of stenosis. There is trace regurgitation. Aorta: Ascending aorta: The ascending aorta is appears normal. Aortic arch: The aortic arch is appears normal. The aortic root is not dilated. Pericardium: There is no significant pericardial effusion. Pulmonary arteries: Not well visualized. Systemic veins: Inferior vena cava: The vessel is dilated. The respirophasic diameter changes are in the normal range (>= 50%). Measurements Left ventricle Value Ref Aortic valve Value Ref JUNITO, LAX 4.3 cm 4.2 - [place] diam, ED 2.2 cm ---- 5.8 Peak v, S 1.31 m/sec ---- ESD, LAX 3.0 cm 2.5 - VTI, S 22.0 cm ---- 4.0 Mean grad, S 3.0 mm Hg ---- FS, LAX 30 % 25 - 43 Peak grad, S 7.0 mm Hg ---- PW, ED, LAX (H) 1.2 cm 0.6 - LVOT/AV, VTI ratio 1.18 ---- 1.0 FS 30 % 25 - 43 Mitral valve Value Ref PW, ED (H) 1.2 cm 0.6 - Peak E 1.12 m/sec ---- 1.0 Peak A 0.6 m/sec ---- E', lat mar[place], TDI 12.2 cm/sec >=10.0 Decel time 120 ms -- -- E/e', lat [place], TDI 9 -------- Peak grad, D 5.0 mm Hg ---- E', med [place], TDI 10.0 cm/sec >=7.0 Peak E/A ratio 1.9 -- -- E/e', med [place], TDI 11 -------- E', avg, TDI 11.1 cm/sec -------- Pulmonic valve Value Ref E/e', avg, TDI 10 <=14 Peak v, S 0.89 m/sec -- -- Peak grad, S 3.0 mm Hg ---- LVOT Value Ref Peak humberto, S 1.08 m/sec -------- Aortic root Value Ref VTI, S 26.0 cm -------- Root diam 3.5 cm <4.2 Mean grad, S 3 mm Hg -------- Ascending aorta Value Ref Ventricular septum Value Ref AAo AP diam, S 3.2 cm ---- IVS, ED (H) 1.1 cm 0.6 - 1.0 Aortic arch Value Ref Arch diam 2.3 cm ---- Right ventricle Value Ref JUNITO, LAX 3.5 cm -------- Decending aorta Value Ref JUNITO minor ax, A4C (H) 4.6 cm 1.9 - Mike peak humberto 0.95 m/sec ---- mid 3.5 Inferior vena cava Value Ref Left atrium Value Ref Diam 2.4 cm ---- ML dim, A4C 4.9 cm -------- SI dim, A4C 5.4 cm -------- Vol/bsa, ES, 1-p (H) 47 ml/m^2 12 - 37 A4C Vol/bsa, ES, A/L (H) 57 ml/m^2 16 - 34 Right atrium Value Ref SI dim, ES 5.1 cm 3.4 - 5.3 ML dim, ES, A4C 4.3 cm 2.6 - 4.4 SI dim, ES, A4C 5.1 cm 3.4 - 5.3 Estimated RAP 8 mm Hg -------- Legend: (L) and (H) gino values outside specified reference range. Prepared and electronically signed by Gomez Peoples MD 11/03/2018 15:48
[2018-11-03] MEDS: Insulin GLARGINE(*) 1 UNITS UNIT SUBCUT SCH (21:20)
[2018-11-04] MEDS: Heparin VIAL(*) 5000 UNITS/ML VIAL (FIVE THOUSAND) SUBCUT SCH (05:42)
[2018-11-04 07:02] LABS: Hematocrit 33 % (42-52); Hemoglobin 11.4 g/dL (14.0-18.0); Mean Corpuscular HGB Conc 35 g/dL (31-36); Mean Corpuscular Hemoglobin 29 pg (27-31); Mean Corpuscular Volume 84 fL (80-94); Mean Platelet Volume 7.3 fL (7.4-10.4); Platelet Count 410 10^3/uL (150-450); Red Blood Count 3.89 10^6 /uL (4.18-5.48); Red Cell Distribution Width 13 % (10.5-15); White Blood Count 13.7 10^3/uL (3.5-10.8)
--- NOTE | 2018-11-04 07:24 | PN ---
Subjective - Subjective Reason for Note: Discharge Note History: He is doing well this morning - good pain control Active Problems: Active Problems Boil, thigh (Acute) L02.429 Carbuncle and furuncle of neck (Acute) L02.12, L02.13 Dyspnea (Acute) R06.00 Type 1 diabetes mellitus with hyperglycemia (Acute) E10.65 Essential hypertension (Chronic) I10 Hyperlipidemia (Chronic) E78.5 Obesity (BMI 30.0-34.9) (Chronic) E66.9 Skin picking habit (Chronic) F42.4 Type 1 diabetes mellitus with microalbuminuria (Chronic) E10.29, R80.9 Type 1 diabetes mellitus with retinopathy (Chronic) E10.319 Current Medications: Current Medications Acetaminophen (Tylenol Tab*) 650 mg PO Q6H PRN PRN Reason: pain/fever Last Admin: 10/31/18 21:33 Dose: 650 mg Amlodipine Besylate (Norvasc Tab*) 5 mg PO DAILY [facility] Last Admin: 11/03/18 09:45 Dose: 5 mg Atorvastatin Calcium (Lipitor*) 40 mg PO DAILY [facility] Last Admin: 11/03/18 09:45 Dose: 40 mg Dextrose (D50w Syringe 50 Ml*) 12.5 gm IV PUSH .FOR FS < 60 - SS PRN PRN Reason: FS < 60 Guaifenesin/Dextromethorphan (Robitussin Dm Sugar Free*) 10 ml PO Q4H PRN PRN Reason: COUGH Last Admin: 11/02/18 01:40 Dose: 10 ml Heparin Sodium (Porcine) (Heparin Vial(*)) 5,000 units SUBCUT Q8HR [facility] Last Admin: 11/04/18 05:42 Dose: 5,000 units Vancomycin HCl 1,000 mg/ (Sodium Chloride) 250 mls @ 166.667 mls/hr IVPB Q12H [facility] Last Admin: 11/03/18 21:20 Dose: 166.667 mls/hr Insulin Glargine (Lantus(*)) 28 units SUBCUT BID [facility] Last Admin: 11/03/18 21:20 Dose: 28 units Insulin Human Lispro (Humalog*) 0 units SUBCUT AC [facility]; Protocol Last Admin: 11/03/18 17:53 Dose: 8 units Insulin Human Lispro (Humalog*) 0 units SUBCUT ACHS [facility]; Protocol Last Admin: 11/03/18 21:19 Dose: 9 units Losartan Potassium (Cozaar Tab*) 100 mg PO DAILY [facility] Last Admin: 11/03/18 09:45 Dose: 100 mg Metoprolol Succinate (Toprol Xl Tab*) 25 mg PO BID [facility] Last Admin: 11/03/18 21:20 Dose: 25 mg Pharmacy Consult (Vancomycin Per Pharmacy*) 1 note FOLLOW UP .VANC PER PHARMACY [facility] Pharmacy Profile Note (Vancomycin Trough Check) 1 note FOLLOW UP 929 ONE Stop: 11/04/18 09:31 Home Medications: Home Medications Medication Instructions Recorded Confirmed Type Atorvastatin* [Lipitor*] 40 mg PO DAILY 10/30/18 10/30/18 History Insulin GLARGINE(*) [Lantus(*)] 26 units SUBCUT BID 10/30/18 10/30/18 History Insulin LISPRO* [HumaLOG*] 16 units SUBCUT TID WITH MEALS 10/30/18 10/30/18 History Losartan TAB* [Cozaar TAB*] 100 mg PO DAILY 10/30/18 10/30/18 History amLODIPine TAB* [Norvasc 5 mg TAB*] 5 mg PO DAILY 10/30/18 10/30/18 History Allergies: Allergies Allergy/AdvReac Type Severity Reaction Status Date / Time Sulfa (Sulfonamide Allergy Intermediate Unknown Verified 10/30/18 11:06 Antibiotics) Reaction Details Objective - Vital Signs Vital Signs: Vital Signs 11/03/18 11/03/18 11/03/18 07:47 11:17 11:26 Temperature 98.4 F 98.1 F Pulse Rate 81 84 Respiratory 33 29 28 Rate Blood Pressure 155/78 154/63 (mmHg) O2 Sat by Pulse 91 93 93 Oximetry 11/03/18 11/03/18 11/03/18 17:11 19:07 21:07 Temperature 98.9 F 99.1 F Pulse Rate 78 84 Respiratory 18 20 20 Rate Blood Pressure 149/58 156/60 (mmHg) O2 Sat by Pulse 96 96 96 Oximetry 11/03/18 11/04/18 11/04/18 21:08 00:04 04:13 Temperature 98.9 F 98.1 F Pulse Rate 80 83 Respiratory 20 20 22 Rate Blood Pressure 149/67 152/63 (mmHg) O2 Sat by Pulse 94 92 Oximetry - Intake and Output Intake and Output: Intake & Output 11/01/18 11/02/18 11/03/18 11/04/18 11:59 11:59 11:59 11:59 Intake Total 3580 2277 1055 1950 Output Total 1725 1900 1650 600 Balance 1855 377 -595 1350 Weight 211 lb Intake: IV Fluids 300 45 50 ABX - VANCOMYCIN 250 20 Cefepime 50 NS 25 50 IVPB 552 285 520 ABX - VANCOMYCIN 552 285 520 Oral 3280 8283 387 4047 Output: Urine 1725 1900 1650 600 Other: Estimated Void Large Medium Medium Date of Last Bowel 10/30/18 Movement # Bowel Movements 0 0 1 0 Estimated Stool Amount Medium # Voids 1 1 0 ADLs: Meal Record Start: 10/30/18 16: 04 Freq: DAILY@0900,1400,1800 Status: Active Protocol: Created 10/30/18 16:04 System (Rec: 10/30/18 16:04 System MED-M22) Document 10/30/18 17:51 [id number] (Rec: 10/30/18 17:51 [id number] MED-C14) Document 10/31/18 09:00 [id number] (Rec: 10/31/18 13:04 [id number] MED-C09) Document 10/31/18 13:58 [id number] (Rec: 10/31/18 13:58 [id number] MED-M21) Document 10/31/18 14:00 [id number] (Rec: 10/31/18 14:37 [id number] MED-C09) Document 10/31/18 18:00 [id number] (Rec: 10/31/18 18:38 [id number] MED-M21) Document 11/01/18 09:00 [id number] (Rec: 11/01/18 09:29 [id number] MED-C11) Document 11/01/18 12:59 [id number] (Rec: 11/01/18 13:00 [id number] MED-C09) Document 11/01/18 18:15 [id number] (Rec: 11/01/18 18:15 [id number] MED-C14) Document 11/02/18 09:00 [id number] (Rec: 11/02/18 13:37 [id number] MED-C11) Document 11/02/18 13:37 [id number] (Rec: 11/02/18 13:37 [id number] MED-C11) Document 11/02/18 18:00 [id number] (Rec: 11/02/18 18:57 [id number] MED-C11) Document 11/03/18 09:00 (Rec: 11/03/18 12:33 [id number] MED-C11) Document 11/03/18 14:00 [id number] (Rec: 11/03/18 14:40 [id number] MED-C09) Document 11/03/18 18:00 [id number] (Rec: 11/03/18 20:24 [id number] MED-C14) Intake and Output Start: 10/30/18 12: 16 Freq: Status: Active Protocol: Created 10/30/18 12:16 System (Rec: 10/30/18 12:16 System ED-C24) Document 11/03/18 23:27 [id number] (Rec: 11/03/18 23:27 [id number] MED-M02) Intake and Output Start: 10/30/18 16: 04 Freq: DAILY@0600,1400,2200 Status: Active Protocol: Created 10/30/18 16:04 System (Rec: 10/30/18 16:04 System MED-M22) Document 10/30/18 22:00 [id number] (Rec: 10/30/18 23:42 [id number] MED-C14) Document 10/31/18 04:18 [id number] (Rec: 10/31/18 04:18 [id number] MED-C16) Document 10/31/18 05:38 [id number] (Rec: 10/31/18 05:38 [id number] MED-C16) Document 10/31/18 14:00 [id number] (Rec: 10/31/18 14:15 [id number] MED-C09) Document 10/31/18 15:24 [id number] (Rec: 10/31/18 15:24 [id number] MED-C09) Document 10/31/18 21:13 [id number] (Rec: 10/31/18 21:14 [id number] MED-C11) Document 11/01/18 04:15 [id number] (Rec: 11/01/18 04:16 [id number] MED-C11) Document 11/01/18 13:02 [id number] (Rec: 11/01/18 13:02 [id number] MED-C09) Document 11/01/18 20:15 [id number] (Rec: 11/01/18 20:17 [id number] MED-C12) Document 11/02/18 05:01 [id number] (Rec: 11/02/18 05:04 [id number] MED-C26) Document 11/02/18 14:00 [id number] (Rec: 11/02/18 14:23 [id number] MED-C11) Document 11/02/18 18:57 [id number] (Rec: 11/02/18 19:03 [id number] MED-C11) Document 11/03/18 14:00 [id number] (Rec: 11/03/18 14:40 [id number] MED-C09) Document 11/03/18 22:00 [id number] (Rec: 11/03/18 22:22 [id number] MED-C14) Document 11/04/18 05:35 [id number] (Rec: 11/04/18 06:23 [id number] MED-C09) Document 11/04/18 05:48 [id number] (Rec: 11/04/18 05:48 [id number] MED-M02) - Physical Exam General Physical Exam Comment: There is some induration over his patch of cellulitis on his right posterior neck. There are also some small openings draining pus. Lungs and Chest: Yes: Chest Expansion Full, Chest Expansion Symetrica, Percussion Note Resonant. No: Vessicular Breath Sounds, Crackles, Wheezes Heart Rate and Rhythm: Regular Additional Cardiovascular: Yes: Normal Heart Sounds. No: Heart Murmur, Pedal Edema Abdominal Exam: Yes: Soft. No: Distention, Abdominal Tenderness Results - Results Lab Results: Laboratory Results - last 24 hr 11/03/18 11/03/18 11/03/18 07:55 08:26 11:59 WBC RBC Hgb Hct MCV MCH MCHC RDW Plt Count MPV POC Glucose (mg/dL) 60 L 82 320 H 11/03/18 11/03/18 11/04/18 16:50 21:04 06:32 WBC 13.7 H RBC 3.89 L Hgb 11.4 L Hct 33 L MCV 84 MCH 29 MCHC 35 RDW 13 Plt Count 410 MPV 7.3 L POC Glucose (mg/dL) 269 H 265 H Assessment - Problem List Assessment: Patient Problems Boil, thigh (Acute) Carbuncle and furuncle of neck (Acute) Dyspnea (Acute) Type 1 diabetes mellitus with hyperglycemia (Acute) Essential hypertension (Chronic) Hyperlipidemia (Chronic) Obesity (BMI 30.0-34.9) (Chronic) Skin picking habit (Chronic) Type 1 diabetes mellitus with microalbuminuria (Chronic) Type 1 diabetes mellitus with retinopathy (Chronic) Plan: See dictated discharge summary Dr. Elliott recommends the use of linezolid. I will discharge him on this antibacterial, with a back up of clindamycin should there be none at the pharmacy and they have to order it in.
[2018-11-04 07:30] LABS: BUN/Creatinine Ratio 18.2 (8-20); C Reactive Protein 82.16 mg/L (<8.01); Calcium 8.3 mg/dL (8.6-10.3); EGFR African American 94.3 (>60); EGFR Non-African American 77.9 (>60); Potassium 3.7 mmol/L (3.5-5.0)
[2018-11-04] MEDS: Insulin LISPRO* 1 UNITS UNIT SUBCUT SCH ×2 (07:39→09:20)
[2018-11-04 07:44] LABS: ABS Basophils 0.1 10^3/ul (0-0.2); ABS Eosinophils 0.7 10^3/ul (0-0.6); ABS Monocytes 1.5 10^3/ul (0-0.8); ABS Neutrophils 10.4 10^3/ul (1.5-7.7); Eosinophil % 4.9 %; Lymphocyte % 7.1 %
[2018-11-04] MEDS ORDERED: Linezolid TAB* 600 MG PO SCH (08:00)
[2018-11-04 08:02] VITALS: BP 157/69
[2018-11-04 09:07] LABS: EGFR African American 89.1 (>60); EGFR Non-African American 73.6 (>60)
[2018-11-04] MEDS: Losartan TAB* 25 MG PO SCH (09:20)
[2018-11-04] MEDS: Insulin GLARGINE(*) 1 UNITS UNIT SUBCUT SCH (09:20)
[2018-11-04] MEDS: Atorvastatin* 40 MG TAB PO SCH (09:20)
[2018-11-04] MEDS: Metoprolol Succinate XL TAB* 25 MG PO SCH (09:21)
[2018-11-04] MEDS: amLODIPine TAB* 5 MG PO SCH (09:21)
[2018-11-04] MEDS ORDERED: Vancomycin Trough Check NOTE FOLLOW UP ONE (09:30)
== END 2018-11-04 11:05 | disposition home or self-care (01) | DRG 720 ==
LOC: ED 11:55 → MED 15:02
PROVIDERS: ADMIT Internal Medicine; ATTEND Internal Medicine
DX: A41.9 Sepsis, unspecified organism (principal); L03.221 Cellulitis of neck; L02.416 Cutaneous abscess of left lower limb; L02.11 Cutaneous abscess of neck; L02.13 Carbuncle of neck; E10.21 Type 1 diabetes mellitus with diabetic nephropathy; E10.319 Type 1 diabetes mellitus with unspecified diabetic retinopathy without macular edema; E10.40 Type 1 diabetes mellitus with diabetic neuropathy, unspecified; L30.8 Other specified dermatitis; I10 Essential (primary) hypertension; L02.12 Furuncle of neck; F32.9 Major depressive disorder, single episode, unspecified; F42.4 Excoriation (skin-picking) disorder; E10.65 Type 1 diabetes mellitus with hyperglycemia; E78.5 Hyperlipidemia, unspecified; B95.62 Methicillin resistant Staphylococcus aureus infection as the cause of diseases classified elsewhere; E10.69 Type 1 diabetes mellitus with other specified complication; R80.9 Proteinuria, unspecified; R06.00 Dyspnea, unspecified; E66.9 Obesity, unspecified; Z88.2 Allergy status to sulfonamides; Z98.52 Vasectomy status; Z82.49 Family history of ischemic heart disease and other diseases of the circulatory system; Z83.3 Family history of diabetes mellitus; Z82.5 Family history of asthma and other chronic lower respiratory diseases; Z87.891 Personal history of nicotine dependence; Z72.89 Other problems related to lifestyle; Z68.34 Body mass index [BMI] 34.0-34.9, adult; Z79.4 Long term (current) use of insulin
CPT/HCPCS: 36415; 70491; 71046; 76536; 80048; 80053; 80202; 81003; 81015; 82565; 82947; 83036; 83605; 83880; 84484; 84520; 85025; 85610; 85730; 86140; 87040; 87070; 87077; 87086; 87186; 87205; 87640; 87641; 93005; 99284; A9270-GY; J0692; J1644; J1940; J3370; Q9967

== ENCOUNTER 2021-09-04 09:31 | Inpatient (IN) ==
[2021-09-04] MEDS ORDERED: NS 0.9% 1000 ml BAG 1,000 ML IV ONE ×2 (10:56→12:21)
[2021-09-04 11:32] LABS: Venous Bicarbonate HCO3 20.3 mmol/L (24-28)
[2021-09-04 11:33] LABS: ABS Lymphocytes 0.4 10^3/ul (1.0-4.8); ABS Monocytes 0.9 10^3/ul (0-0.8); ABS Neutrophils 13.9 10^3/ul (1.5-7.7); Hematocrit 38 % (42-52); Hemoglobin 12.7 g/dL (14.0-18.0); Lymphocyte % 2.6 %; Mean Corpuscular HGB Conc 34 g/dL (31-36); Mean Corpuscular Hemoglobin 30 pg (27-31); Mean Corpuscular Volume 88 fL (80-94); Mean Platelet Volume 8.4 fL (7.4-10.4); Platelet Count 317 10^3/uL (150-450); Red Blood Count 4.26 10^6 /uL (4.18-5.48); Red Cell Distribution Width 14 % (10-15); White Blood Count 15.2 10^3/uL (3.5-10.8)
[2021-09-04 11:54] LABS: High Sens Troponin Baseline 14 pg/mL (<20)
[2021-09-04 12:03] LABS: ALT 9 U/L (7-52); AST 8 U/L (13-39); Albumin 4.1 g/dL (3.2-5.2); Albumin/Globulin Ratio 1.5 (1-3); Alcohol, S < 13 mg/dL (<13); Alkaline Phosphatase 89 U/L (35-149); Blood Urea Nitrogen 71 mg/dL (6-24); CO2 Carbon Dioxide 21 mmol/L (22-32); Chloride 79 mmol/L (101-111); Globulin 2.7 g/dL (2-4); Magnesium 2.1 mg/dL (1.9-2.7); Total Protein 6.8 g/dL (6.4-8.9); eGFR CKD-EPI 32.4 (>60)
[2021-09-04 12:20] LABS: Anion Gap 18 mmol/L (2-11); Potassium 6.3 mmol/L (3.5-5.0); Sodium 118 mmol/L (135-145)
[2021-09-04 12:27] LABS: Glucose 961 mg/dL (70-100)
[2021-09-04 12:28] LABS: Urine Benzodiazepine Screen None Detected (None Detect); Urine Cannabinoids Screen None Detected (None Detect); Urine Opiates Screen None Detected (None Detect)
[2021-09-04 12:38] LABS: Urine Appearance Clear; Urine Bilirubin Negative (Negative); Urine Blood 1+ (Negative); Urine Color Straw; Urine Glucose 3+(>=500 mg/dL) (Negative); Urine Ketones 1+ (Negative); Urine Nitrite Negative (Negative); Urine Protein Negative (Negative); Urine Specific Gravity 1.022 (1.002-1.030); Urine Urobilinogen Negative (Negative)
[2021-09-04 12:42] LABS: Urine Amorphous Crystals Present (Absent); Urine Bacteria Absent (Absent); Urine Red Blood Cell Trace(0-2/hpf) (Absent); Urine Squamous Epithelial Cell Present (Absent); Urine White Blood Cell Trace(0-5/hpf) (Absent)
[2021-09-04] MEDS ORDERED: Insulin GLARGINE 100 un/ml 10 ml VIAL SUBCUT ONE (12:50)
[2021-09-04 12:54] LABS: High Sensitivity Troponin 1 Hr 12 pg/mL (<20)
[2021-09-04] MEDS ORDERED: Insulin Infusion 100unit/100mL 100 UNIT/100 ML BAG IV ONE (12:54)
[2021-09-04] MEDS ORDERED: Insulin Infusion 100unit/100mL 100 UNIT/100 ML BAG IV SCH (13:05)
[2021-09-04] MEDS ORDERED: Dextrose 50% Syringe 50 ml 25 GM/50 ML SYRINGE IV PUSH PRN (13:39)
[2021-09-04 13:56] LABS: Urine Osmo 512 mOsm/kg (150-1150)
[2021-09-04] MEDS ORDERED: Ondansetron 4 mg VIAL 2 MG/ML 2 ml VIAL IV PRN (13:57)
[2021-09-04] MEDS ORDERED: Lactated Ringers 1000 ml BAG 1,000 ML IV SCH (14:00)
[2021-09-04] MEDS: Heparin 5000 UNITS/ML 1 mL VIAL SUBCUT SCH ×2 (14:38→21:03)
[2021-09-04] MEDS: Pantoprazole VIAL 40 MG VIAL IV SCH (14:38)
[2021-09-04 17:00] LABS: Calcium 10.2 mg/dL (8.6-10.3); Potassium 4.5 mmol/L (3.5-5.0)
[2021-09-04 17:08] LABS: Osmolality Serum 329 mOsm/kg (275-295)
[2021-09-04 17:27] LABS: Magnesium 2.1 mg/dL (1.9-2.7)
[2021-09-04 17:33] LABS: Phosphorus 4.3 mg/dL (2.5-5.0); eGFR CKD-EPI 34.2 (>60)
[2021-09-04] MEDS ORDERED: Magnesium Sulfate 2 gm BAG 2 GM/50 ML BAG IVPB ONE (17:33)
[2021-09-04] MEDS: KCL 20 MEQ/100 ML IVPREMIX 20 MEQ/100 ML BAG IV SCH ×2 (18:44→21:03)
[2021-09-04 19:13] LABS: Glucose Confirmatory 499 mg/dL (70-100)
[2021-09-04 21:59] LABS: Calcium 10.3 mg/dL (8.6-10.3); Magnesium 2.6 mg/dL (1.9-2.7); Phosphorus 3.1 mg/dL (2.5-5.0); Potassium 4.5 mmol/L (3.5-5.0); eGFR CKD-EPI 39.9 (>60)
[2021-09-04] MEDS: Insulin GLARGINE 100 un/ml 10 ml VIAL SUBCUT SCH (22:42)
[2021-09-04] MEDS: Lactated Ringers 1000 ml BAG 1,000 ML IV SCH (22:46)
[2021-09-05 04:10] LABS: Calcium 9.8 mg/dL (8.6-10.3); Magnesium 2.2 mg/dL (1.9-2.7); Phosphorus 3.1 mg/dL (2.5-5.0); Potassium 4.2 mmol/L (3.5-5.0); eGFR CKD-EPI 47.5 (>60)
[2021-09-05] MEDS: Heparin 5000 UNITS/ML 1 mL VIAL SUBCUT SCH ×3 (05:54→21:34)
[2021-09-05 06:00] LABS: ABS Basophils 0.1 10^3/ul (0-0.2); ABS Eosinophils 0.1 10^3/ul (0-0.6); ABS Lymphocytes 0.8 10^3/ul (1.0-4.8); ABS Neutrophils 10.8 10^3/ul (1.5-7.7); Eosinophil % 0.4 %; Hematocrit 34 % (42-52); Hemoglobin 12.3 g/dL (14.0-18.0); Lymphocyte % 6.5 %; Mean Corpuscular HGB Conc 36 g/dL (31-36); Mean Corpuscular Hemoglobin 30 pg (27-31); Mean Corpuscular Volume 84 fL (80-94); Mean Platelet Volume 7.4 fL (7.4-10.4); Platelet Count 253 10^3/uL (150-450); Red Blood Count 4.07 10^6 /uL (4.18-5.48); Red Cell Distribution Width 14 % (10-15); White Blood Count 12.7 10^3/uL (3.5-10.8)
[2021-09-05 06:23] LABS: Calcium 9.4 mg/dL (8.6-10.3); Magnesium 2.1 mg/dL (1.9-2.7); Phosphorus 2.7 mg/dL (2.5-5.0); Potassium 4.6 mmol/L (3.5-5.0); eGFR CKD-EPI 50.5 (>60)
[2021-09-05] MEDS: Lactated Ringers 1000 ml BAG 1,000 ML IV SCH ×3 (08:40→21:58)
[2021-09-05] MEDS: Pantoprazole VIAL 40 MG VIAL IV SCH (08:41)
[2021-09-05] MEDS: Insulin GLARGINE 100 un/ml 10 ml VIAL SUBCUT SCH ×2 (08:41→21:33)
[2021-09-05 09:39] LABS: C Reactive Protein 5.93 mg/L (<8.01)
[2021-09-05] MEDS ORDERED: Dextrose 50% Syringe 50 ml 25 GM/50 ML SYRINGE IV PUSH PRN (11:46)
[2021-09-05] MEDS ORDERED: Calcium Carb (TUMS) 500 mg CHEW TAB PO PRN (13:38)
[2021-09-05 17:12] LABS: Calcium 9.7 mg/dL (8.6-10.3); Magnesium 2.1 mg/dL (1.9-2.7); Phosphorus 1.6 mg/dL (2.5-5.0); Potassium 4.3 mmol/L (3.5-5.0)
[2021-09-06] MEDS: Lactated Ringers 1000 ml BAG 1,000 ML IV SCH (04:18)
[2021-09-06] MEDS: Heparin 5000 UNITS/ML 1 mL VIAL SUBCUT SCH ×2 (05:04→13:34)
[2021-09-06] MEDS: Insulin GLARGINE 100 un/ml 10 ml VIAL SUBCUT SCH ×2 (08:35→10:58)
[2021-09-06] MEDS ORDERED: Potassium Phosphate IV 5 MMOLE in NS 0.9% 250 ml 250 ML IVPB ONE (08:46)
[2021-09-06 08:51] LABS: ABS Basophils 0.1 10^3/ul (0-0.2); ABS Eosinophils 0.2 10^3/ul (0-0.6); ABS Monocytes 0.7 10^3/ul (0-0.8); ABS Neutrophils 4.4 10^3/ul (1.5-7.7); Hematocrit 35 % (42-52); Hemoglobin 12.9 g/dL (14.0-18.0); Lymphocyte % 16.6 %; Mean Corpuscular HGB Conc 36 g/dL (31-36); Mean Corpuscular Hemoglobin 30 pg (27-31); Mean Corpuscular Volume 84 fL (80-94); Mean Platelet Volume 7.6 fL (7.4-10.4); Nucleated Red Blood Cells % 0.1; Platelet Count 220 10^3/uL (150-450); Red Blood Count 4.23 10^6 /uL (4.18-5.48); Red Cell Distribution Width 13 % (10-15); White Blood Count 6.3 10^3/uL (3.5-10.8)
[2021-09-06] MEDS ORDERED: Flu vaccine *QUAD* 2021-22* 0.5 ML SYRINGE IM ONE (09:00)
[2021-09-06 09:23] LABS: Calcium 9.1 mg/dL (8.6-10.3); Potassium 3.5 mmol/L (3.5-5.0); eGFR CKD-EPI 92.2 (>60)
[2021-09-06 15:01] VITALS: BP 165/80
== END 2021-09-06 16:40 | disposition home or self-care (01) | DRG 420 ==
LOC: ED 09:31 → EDHOLD 13:46 → SUATTDRO 13:46 → ICU 15:28 → MED 09-05 14:39
PROVIDERS: ADMIT Internal Medicine; ATTEND Student in an Organized Health Care Education/Training Program